=== PATIENT | male | born 1965 | race Caucasian/White ===

== ENCOUNTER → 2017-05-23 16:41 | Outpatient (CLI) | payer BC, SELFPAY ==
[2017-05-23 17:48] LABS: Hemoglobin A1C 6.3 % (0.0-7.0)
[2017-05-23 19:46] LABS: Alanine Aminotransferase 32 U/L (12-78); Albumin Level 4.2 gm/dL (3.4-5.0); Albumin/Globulin Ratio 1.4 (1.1-1.8); Alkaline Phosphatase 104 U/L (46-116); Anion Gap 11.3 mEq/L (5-15); Aspartate Amino Transferase 17 U/L (15-37); Bilirubin,Total 0.4 mg/dL (0.2-1.0); Blood Urea Nitrogen 11 mg/dL (7-18); Calcium 9.3 mg/dL (8.5-10.1); Carbon Dioxide 32 mmol/L (21.0-32.0); Chloride 102 mmol/L (98-107); Chol/HDL Ratio 5.9 (1-3.5); Cholesterol 164 mg/dL (140-200); Creatinine,Serum 1.42 mg/dL (0.70-1.30); Estimated Glomerular Filt Rate 53 ml/min (>60); GFR (African American) 64 ML/MIN (>60); Globulin 2.9 gm/dl (1.3-3.2); Glucose 92 mg/dL (74-106); HDL Cholesterol 28 mg/dL (27-67); LDL Cholesterol 103 mg/dL (0-130); Potassium 5.3 mmoL/L (3.5-5.1); Sodium 140 mmol/L (136-145); Total Protein,Serum 7.1 gm/dL (6.4-8.2); Triglycerides 163 mg/dL (30-200); VLDL Cholesterol 33 mg/dL (0-40)
== END ==
PROVIDERS: PCP Internal Medicine Adolescent Medicine; Visit Provider Internal Medicine Adolescent Medicine
DX: E11.69 Type 2 diabetes mellitus with other specified complication (principal)
CPT/HCPCS: 36415; 80053; 80061; 83036

== ENCOUNTER → 2017-06-23 10:49 | Outpatient (CLI) | payer BC, SELFPAY ==
--- NOTE | 2017-06-23 10:56 | XR_ITS ---
XR chest 2V HISTORY: ITS.REASON: COUGH,CHEST WALL PAIN ORDERING PHYSICIAN: Yadira Umaña PATIENT AGE: 51 years COMPARISON: 01/24/2017 FINDINGS: The cardiomediastinal silhouette and pulmonary vascularity are within normal limits. No lobar consolidation or collapse. A triangle shape opacity is once again noted in the right upper lobe overlying the 43 of anteriorly. This is similar when compared to 06/11/2016 and may represent a chronic pleural or parenchymal opacity. There is blunting of the right CP angle which is chronic. No acute bony abnormalities. IMPRESSION: No change with no acute finding Chronic blunting of the right CP angle with chronic opacity in the right upper lobe
== END ==
PROVIDERS: PCP Internal Medicine Adolescent Medicine; Visit Provider Nurse Practitioner Family
DX: R05 Cough (principal); R07.89 Other chest pain
CPT/HCPCS: 71046

== ENCOUNTER → 2017-10-01 11:29 | Outpatient (CLI) | payer BC, SELFPAY ==
--- NOTE | 2017-10-01 11:38 | XR_ITS ---
XR chest 2V Ordering Physician: Avni Yarbrough MD Patient Age: 52 years: Male HISTORY: ITS.REASON: ACUTE BRONCHOPNEUMONIA cough Surgery 4 years ago on lungs. Smoker. TECHNIQUE: PA and lateral chest. Cough. COMPARISON : June 2017: January 2017 FINDINGS There is been no significant new findings. Blunting at the right CP angle reflecting chronic pleural changes here again noted similar to February exam. The lungs appear well expanded and unchanged there is some minimal density again seen at the right midlung on, with the small faint area of density projected over the anterior right fourth rib. Possible nodular density here dates back to January 2017 CXR with no discrete change . Mild exaggeration markings right suprahilar region seen similar to previous studies.. I would also note Note history of surgery at the right chest.. Low threshold for follow-up CT would be encouraged particularly if positive findings from previous chest surgery. . IMPRESSION: Stable chest with nothing definitely acute. No acute pneumonia evident radiographically . Stable minimal nodularity right midlung. This and the mild prominence of markings right suprahilar region with no discrete change since June 2017 nor January 2017 study.. Stable blunting right CP angle again observed.
[2017-10-01 11:52] LABS: Basophils # 0.1 K/mm3 (0-0.2); Basophils % 1.6 % (0.1-2.0); Eosinophils # 0.2 K/mm3 (0.0-0.4); Hematocrit 41.9 % (42.0-52.0); Hemoglobin 14.2 g/dL (14.1-18.0); Lymphocytes # 2.1 K/mm3 (0.7-4.5); Lymphocytes % 35.9 K/mm3 (10-50); Mean Corpuscular HGB Conc 33.9 g/dL (31.8-35.4); Mean Corpuscular Hemoglobin 28.3 pg (27.0-31.2); Mean Corpuscular Volume 83.7 fl (80-94); Mean Platelet Volume 9.5 fl (7.4-10.4); Monocytes # 0.4 K/mm3 (0.1-1.0); Monocytes % 6.3 % (1.7-9.3); Neutrophils # 3.2 K/mm3 (1.8-7.8); Neutrophils % 53.2 % (37.0-80.0); Platelet Count 181 K/mm3 (142-424); Red Cell Distribution Width 13.2 % (11.5-17.5); White Blood Count 5.9 K/mm3 (4.8-10.8)
[2017-10-01 15:14] LABS: Alanine Aminotransferase 37 U/L (12-78); Albumin Level 3.7 gm/dL (3.4-5.0); Albumin/Globulin Ratio 1.3 (1.1-1.8); Alkaline Phosphatase 80 U/L (46-116); Anion Gap 10.5 mEq/L (5-15); Aspartate Amino Transferase 16 U/L (15-37); Bilirubin,Total 0.5 mg/dL (0.2-1.0); Blood Urea Nitrogen 14 mg/dL (7-18); Calcium 9.1 mg/dL (8.5-10.1); Carbon Dioxide 29 mmol/L (21.0-32.0); Chloride 104 mmol/L (98-107); Creatinine,Serum 1.03 mg/dL (0.70-1.30); Estimated Glomerular Filt Rate 76 ml/min (>60); GFR (African American) 92 ML/MIN (>60); Globulin 2.9 gm/dl (1.3-3.2); Glucose 124 mg/dL (74-106); Potassium 4.5 mmoL/L (3.5-5.1); Sodium 139 mmol/L (136-145); Total Protein,Serum 6.6 gm/dL (6.4-8.2)
[2017-10-01 15:40] LABS: Hemoglobin A1C 7.2 % (0.0-7.0)
== END ==
PROVIDERS: PCP Internal Medicine Adolescent Medicine; Visit Provider Internal Medicine Adolescent Medicine
DX: J18.0 Bronchopneumonia, unspecified organism (principal); E11.69 Type 2 diabetes mellitus with other specified complication; Z87.09 Personal history of other diseases of the respiratory system
CPT/HCPCS: 36415; 71046; 80053; 83036; 85025

== ENCOUNTER 2018-05-17 14:24 | Inpatient (IN) ==
--- NOTE | 2018-05-17 15:10 | Pharmacy Consult Notes ---
[facility] Pharmacy VTE Monitoring - Patient Demographics Admission date: 05/17/18 Report Date: 05/17/18 Time: 15:10 Allergies/Adverse Reactions: Patient Allergies No Known Allergies Allergy (Unverified 05/15/18 12:59) Height: 1.75 m Weight: 120.259 kg - VTE Risk Clinical Trial Participant: No - Prophylaxis VTE Prophylaxis Ordered?: Yes Types of VTE Prophylaxis: TEDS Knee High
[2018-05-17 16:09] LABS: Basophils # 0.1 K/mm3 (0-0.2); Basophils % 0.7 % (0.1-2.0); Eosinophils # 0.2 K/mm3 (0.0-0.4); Eosinophils % 1.6 % (0.1-12.0); Hematocrit 41.8 % (42.0-52.0); Hemoglobin 13.9 g/dL (14.1-18.0); Lymphocytes # 1.9 K/mm3 (0.7-4.5); Lymphocytes % 14.2 % (10-50); Mean Corpuscular HGB Conc 33.2 g/dL (31.8-35.4); Mean Corpuscular Hemoglobin 28.7 pg (27.0-31.2); Mean Corpuscular Volume 86.4 fl (80-94); Mean Platelet Volume 9.3 fl (7.4-10.4); Monocytes # 0.7 K/mm3 (0.1-1.0); Monocytes % 5.3 % (1.7-9.3); Neutrophils # 10.4 K/mm3 (1.8-7.8); Neutrophils % 78.1 % (37.0-80.0); Platelet Count 224 K/mm3 (142-424); Red Blood Count 4.84 M/mm3 (4.60-6.20); Red Cell Distribution Width 13.2 % (11.5-17.5); White Blood Count 13.4 K/mm3 (4.8-10.8)
--- NOTE | 2018-05-17 16:22 | Consult Report ---
*Admission Date: 05/17/18 *Chief complaint: Abscess *History of present illness: This is a 52-year-old gentleman seen in consultation from Dr. Yarbrough for evaluation regarding a posterior neck abscess. He developed what he describes as "pimple" a "week or so ago". As the area of swelling increased he tried to express fluid and created increased irritation. He developed increased erythema and pain/swelling and presented for evaluation earlier today. After evaluation by Dr. Yarbrough the decision was made to admit for IV antibiotics and surgical consultation. Review of Systems - Constitutional Denies chills - Eyes Denies change in vision - ENT Denies change in voice - *Cardiovascular Denies chest pain - *Respiratory Denies cough - *Gastrointestinal Denies abdominal pain - *Musculoskeletal Denies abnormal walking - Psychiatric Denies anxiety - Endocrine Denies cold intolerance - Hematologic/Lymphatic Denies easy bleeding - Allergic/Immunologic Denies GI upset with certain foods [facility] History Medical History: Reports:: Depression, Diabetes Mellitus Type 2, Gastroesophageal Reflux Disease(GERD), Hyperlipidemia, Hypertension - *Social History Smoking Status: Never smoker Alcohol Intake: never - Psychiatric History Pschychiatric History:: Reports:: Depression Meds Home Medications Medication Instructions Recorded Confirmed Type escitalopram 20 mg tablet 40 mg PO DAILY 05/15/18 05/17/18 History Albuterol Sulfate [Albuterol HFA 2 puffs IH Q4HP PRN 05/17/18 05/17/18 History Inhaler] Atorvastatin Calcium [Atorvastatin 20 mg PO DAILY 05/17/18 05/17/18 History 20mg Tab] Budesonide/Formoterol Fumarate 2 puffs IH BIDP PRN 05/17/18 05/17/18 History [Symbicort 160-4.5 Mcg Inhaler] Lansoprazole 30 mg PO DAILY 05/17/18 05/17/18 History Sitagliptin Phos/Metformin HCl 1 each PO HS 05/17/18 05/17/18 History [Janumet Xr 100-1,000 mg Tablet] Venlafaxine HCl [Venlafaxine HCl 37.5 mg PO DAILY 05/17/18 05/17/18 History ER] cephALEXin [Keflex 500mg Cap] 500 mg PO BID 05/17/18 05/17/18 History Allergies Allergy/AdvReac Type Severity Reaction Status Date / Time No Known Allergies Allergy Unverified 05/15/18 12:59 Exam Vital signs and Labs for Last 24 Hours: Temp Pulse Resp BP Pulse Ox 98.6 F 86 18 139/65 96 05/17/18 15:04 05/17/18 15:04 05/17/18 15:04 05/17/18 15:04 05/17/18 15:04 Laboratory Results - last 24 hr 05/17/18 15:50: WBC 13.4 H, RBC 4.84, Hgb 13.9 L, Hct 41.8 L, MCV 86.4, MCH 28.7, MCHC 33.2, RDW 13.2, Plt Count 224, MPV 9.3, Neut % (Auto) 78.1, Lymph % (Auto) 14.2, [place] % (Auto) 5.3, Eos % (Auto) 1.6, Baso % (Auto) 0.7, Neut # (Auto) 10.4 H, Lymph # (Auto) 1.9, [place] # (Auto) 0.7, Eos # (Auto) 0.2, Baso # (Auto) 0.1 I & O for Last 24 hours: Intake & Output 05/15/18 05/16/18 05/17/18 05/18/18 11:59 11:59 11:59 11:59 Weight 265 lb 2 oz - Constitutional no acute distress - *Routine Neck Exam Comments: left posterior abscess with induration and erythema - *Routine Respiratory Exam Absent: respiratory distress - *Routine Cardiovascular Exam Present: RRR Results - Labs 05/17/18 15:50 Laboratory Results - last 24 hr 05/17/18 15:50: WBC 13.4 H, RBC 4.84, Hgb 13.9 L, Hct 41.8 L, MCV 86.4, MCH 28.7, MCHC 33.2, RDW 13.2, Plt Count 224, MPV 9.3, Neut % (Auto) 78.1, Lymph % (Auto) 14.2, [place] % (Auto) 5.3, Eos % (Auto) 1.6, Baso % (Auto) 0.7, Neut # (Auto) 10.4 H, Lymph # (Auto) 1.9, [place] # (Auto) 0.7, Eos # (Auto) 0.2, Baso # (Auto) 0.1 Assessment and Plan (1) Abscess of neck Current visit: Yes Status: Acute Category: Medical Code(s): L02.11 - Cutaneous abscess of neck IV antibiotics Pain management NPO after midnight The patient is being scheduled for incision and drainage (to be performed tomorrow). I have discussed the risks and benefits including, but not limited to: Bleeding Infection Damage to surrounding tissue Inherent risks of sedation The patient agrees to proceed.
[2018-05-17 16:23] LABS: Albumin Level 3.5 gm/dL (3.4-5.0); Albumin/Globulin Ratio 0.9 (1.1-1.8); Anion Gap 13.1 mEq/L (5-15); Bilirubin,Total 0.6 mg/dL (0.2-1.0); Calcium 8.9 mg/dL (8.5-10.1); Globulin 3.8 gm/dl (1.3-3.2); Potassium 4.1 mmoL/L (3.5-5.1); Total Protein,Serum 7.3 gm/dL (6.4-8.2)
--- NOTE | 2018-05-17 17:23 | History & Physical Report ---
*Admission Date: 05/17/18 *Chief complaint: Neck abscess *History of present illness: 52-year-old white male with no prior history of skin abscess who reported to the office today with a chief complaint of painful swelling in the left neck with some purulent drainage. He had been seen at the urgent treatment center over the holidays and placed on Keflex, and although he had been compliant with his medication it had not improved his situation with neck pain, swelling and purulent drainage and he came to my office. In the office he was found to have a very large, 10 cm indurated, tender area covered with a macerated area that appeared to be impetigo along with a couple of other new spots in the neck and he was admitted to hospital for IV antibiotics and surgical consultation. [facility] History I have reviewed the patient's past medical history: Yes Medical History: Reports:: Depression, Diabetes Mellitus Type 2, Gastroesophageal Reflux Disease(GERD), Hyperlipidemia, Hypertension Denies:: Cancer, Diabetes Mellitus Type 1, MRSA Other Surgeries: Yes: Other (Pleurodesis secondary to recurrent pleural effusions) Amputation: No Fractures: No - *Social History Educational Level: Completed High School Smoking Status: Current every day smoker Tobacco Type: cigarettes Alcohol Intake: never Occupational Status: employed Housing: house Household Members: spouse - Psychiatric History Expresses thoughts of harming self/others: None Suicide Plan Description: No Plan Pschychiatric History:: Reports:: Depression *Family Hx:: No significant family history, Non-contributory Review of Systems - Review of Systems Review of systems:: pertinent systems reviewed and negative unless documented below - Constitutional Reports body ache(s), Reports chills, Reports fever(s), Reports headache(s), Denies anorexia - Eyes Denies blind spots, Denies blurry vision, Denies change in vision - ENT Denies abnormal hearing, Denies bleeding gums, Denies change in voice - *Cardiovascular Denies chest pain, Denies chest pain at rest, Denies excessive sweating, Denies shortness of breath with activity, Denies generalized swelling, Denies irregular heart rhythm - *Respiratory Denies change in phlegm color, Denies chest congestion, Denies cough, Denies shortness of breath - *Gastrointestinal Denies abdominal pain, Denies belching, Denies bloating, Denies coffee ground vomit, Denies constipation, Denies cramping - *Genitourinary Denies difficulty urinating - *Musculoskeletal Reports neck pain, Denies abnormal walking, Denies joint pain, Denies decreased muscle mass, Denies stiffness, Denies tingling - *Neurologic Denies abnormal walking, Denies abnormal hearing Meds Home Medications Medication Instructions Recorded Confirmed Type escitalopram 20 mg tablet 40 mg PO DAILY 05/15/18 05/17/18 History Albuterol Sulfate [Albuterol HFA 2 puffs IH Q4HP PRN 05/17/18 05/17/18 History Inhaler] Atorvastatin Calcium [Atorvastatin 20 mg PO DAILY 05/17/18 05/17/18 History 20mg Tab] Budesonide/Formoterol Fumarate 2 puffs IH BIDP PRN 05/17/18 05/17/18 History [Symbicort 160-4.5 Mcg Inhaler] Lansoprazole 30 mg PO DAILY 05/17/18 05/17/18 History Sitagliptin Phos/Metformin HCl 1 each PO HS 05/17/18 05/17/18 History [Janumet Xr 100-1,000 mg Tablet] Venlafaxine HCl [Venlafaxine HCl 37.5 mg PO DAILY 05/17/18 05/17/18 History ER] cephALEXin [Keflex 500mg Cap] 500 mg PO BID 05/17/18 05/17/18 History Allergies Allergy/AdvReac Type Severity Reaction Status Date / Time No Known Allergies Allergy Unverified 05/15/18 12:59 Exam Vital signs and Labs for Last 24 Hours: Temp Pulse Resp BP Pulse Ox 98.6 F 86 18 139/65 96 05/17/18 15:04 05/17/18 15:04 05/17/18 15:04 05/17/18 15:04 05/17/18 15:04 Laboratory Results - last 24 hr 05/17/18 15:50: WBC 13.4 H, RBC 4.84, Hgb 13.9 L, Hct 41.8 L, MCV 86.4, MCH 28.7, MCHC 33.2, RDW 13.2, Plt Count 224, MPV 9.3, Neut % (Auto) 78.1, Lymph % (Auto) 14.2, [place] % (Auto) 5.3, Eos % (Auto) 1.6, Baso % (Auto) 0.7, Neut # (Auto) 10.4 H, Lymph # (Auto) 1.9, [place] # (Auto) 0.7, Eos # (Auto) 0.2, Baso # (Auto) 0.1 05/17/18 15:50: Sodium 138, Potassium 4.1, Chloride 101, Carbon Dioxide 28, Anion Gap 13.1, BUN 12, Creatinine 1.08, Estimated Creat Clear 138, Estimated GFR 72, Est GFR ( Amer) 87, Glucose 198 H, Calcium 8.9, Total Bilirubin 0.6, AST 20, ALT 59, Alkaline Phosphatase 104, Total Protein 7.3, Albumin 3.5, Globulin 3.8 H, Albumin/Globulin Ratio 0.9 L I & O for Last 24 hours: Intake & Output 05/15/18 05/16/18 05/17/18 05/18/18 11:59 11:59 11:59 11:59 Weight 265 lb 2 oz Narrative: Patient is awake. Alert. Cranial nerves are intact and symmetric. Patient has an obvious, large, indurated area of abscess on the left neck at the base of the neck just above the trapezius area with a central head of minimal purulent drainage. There is a smaller area of abscess on the anterior left neck. There is shotty lymphadenitis on the left side of the Lungs have some rhonchi scattered throughout. No crackles. No areas of poor air movement. Heart rate regular without murmurs. Abdomen soft and nontender. No clubbing, no cyanosis. No edema. Assessment and Plan (1) Abscess of neck Current visit: Yes Status: Acute Category: Medical Code(s): L02.11 - Cutaneous abscess of neck Given failed outpatient therapy admit to hospital. Intravenous Unasyn and vancomycin for gram-negative/positive coverage. Surgical consultation. (2) Diabetes type 2, controlled Current visit: Yes Status: Acute Category: Medical Code(s): E11.9 - Type 2 diabetes mellitus without complications Hold p.o. medications. Sliding scale insulin (3) Personal history of nicotine dependence Current visit: Yes Status: Acute Category: Medical Code(s): Z87.891 - Personal history of nicotine dependence Nicotine patch. (4) Obesity (BMI 30-39.9) Current visit: Yes Status: Acute Category: Medical Code(s): E66.9 - Obesity, unspecified Complicates all aspects of his care. (5) Hypertension, essential Current visit: Yes Status: Acute Category: Medical Code(s): I10 - Essential (primary) hypertension Hold p.o. medications. Watch carefully. (6) Panlobular emphysema Current visit: Yes Status: Acute Category: Medical Code(s): J43.1 - Pa nlobular emphysema Begin nebulizer treatments for perioperative
--- NOTE | 2018-05-18 07:35 | Progress Note ---
Subjective Patient reports: other (getting ready for shower) Exam Vital signs and Labs for Last 24 Hours: Temp Pulse Resp BP Pulse Ox 98.1 F 75 18 132/70 88 L 05/18/18 05:45 05/18/18 06:30 05/18/18 05:45 05/18/18 05:45 05/18/18 06:30 Laboratory Results - last 24 hr 05/17/18 15:50: WBC 13.4 H, RBC 4.84, Hgb 13.9 L, Hct 41.8 L, MCV 86.4, MCH 28.7, MCHC 33.2, RDW 13.2, Plt Count 224, MPV 9.3, Neut % (Auto) 78.1, Lymph % (Auto) 14.2, [place] % (Auto) 5.3, Eos % (Auto) 1.6, Baso % (Auto) 0.7, Neut # (Auto) 10.4 H, Lymph # (Auto) 1.9, [place] # (Auto) 0.7, Eos # (Auto) 0.2, Baso # (Auto) 0.1 05/17/18 15:50: Sodium 138, Potassium 4.1, Chloride 101, Carbon Dioxide 28, Anion Gap 13.1, BUN 12, Creatinine 1.08, Estimated Creat Clear 138, Estimated GFR 72, Est GFR ( Amer) 87, Glucose 198 H, Calcium 8.9, Total Bilirubin 0.6, AST 20, ALT 59, Alkaline Phosphatase 104, Total Protein 7.3, Albumin 3.5, Globulin 3.8 H, Albumin/Globulin Ratio 0.9 L 05/17/18 17:30: POC Glucose 148 H 05/18/18 06:01: POC Glucose 145 H I & O for Last 24 hours: Intake & Output 05/15/18 05/16/18 05/17/18 05/18/18 11:59 11:59 11:59 11:59 Output Total 1000 / 1000 Balance -1000 / -1000 Weight 586 lb 6.873 oz - Constitutional no acute distress - *Routine Neck Exam Comments: stable - *Routine Respiratory Exam Absent: respiratory distress Progress Note: A&P (1) Abscess of neck Status: Acute Assessment and plan: continue abx I&D today Current Visit: Yes (2) Diabetes type 2, controlled Status: Acute Current Visit: Yes (3) Personal history of nicotine dependence Status: Acute Current Visit: Yes (4) Obesity (BMI 30-39.9) Status: Acute Current Visit: Yes (5) Hypertension, essential Status: Acute Current Visit: Yes (6) Panlobular emphysema Status: Acute Current Visit: Yes
--- NOTE | 2018-05-18 08:29 | Progress Note ---
Internal Medicine - PN: Subj *Date: 05/18/18 *Time: 07:15 Interval history: Patient reports neck pain and swelling has significantly improved. He is NPO for I & D later today. Alert and oriented x3. Rate and rhythm regular. No LE edema. Lung sounds clear and equal. Left posterior neck with approx 6 cm raised erythematous area, + purulent drainage, small approx 1 cm lesion c/w impetigo left cheek, anterior LAD improved. Abdomen soft and nontender Exam Vital signs and Labs for Last 24 Hours: Temp Pulse Resp BP Pulse Ox 98.1 F 84 16 137/77 95 05/18/18 08:00 05/18/18 08:00 05/18/18 08:00 05/18/18 08:00 05/18/18 08:00 Laboratory Results - last 24 hr 05/17/18 15:50: WBC 13.4 H, RBC 4.84, Hgb 13.9 L, Hct 41.8 L, MCV 86.4, MCH 28.7, MCHC 33.2, RDW 13.2, Plt Count 224, MPV 9.3, Neut % (Auto) 78.1, Lymph % (Auto) 14.2, [place] % (Auto) 5.3, Eos % (Auto) 1.6, Baso % (Auto) 0.7, Neut # (Auto) 10.4 H, Lymph # (Auto) 1.9, [place] # (Auto) 0.7, Eos # (Auto) 0.2, Baso # (Auto) 0.1 05/17/18 15:50: Sodium 138, Potassium 4.1, Chloride 101, Carbon Dioxide 28, Anion Gap 13.1, BUN 12, Creatinine 1.08, Estimated Creat Clear 138, Estimated GFR 72, Est GFR ( Amer) 87, Glucose 198 H, Calcium 8.9, Total Bilirubin 0.6, AST 20, ALT 59, Alkaline Phosphatase 104, Total Protein 7.3, Albumin 3.5, Globulin 3.8 H, Albumin/Globulin Ratio 0.9 L 05/17/18 17:30: POC Glucose 148 H 05/18/18 06:01: POC Glucose 145 H I & O for Last 24 hours: Intake & Output 05/15/18 05/16/18 05/17/18 05/18/18 11:59 11:59 11:59 11:59 Output Total 1000 / 1000 Balance -1000 / -1000 Weight 264 lb 5 oz Assessment and Plan (1) Abscess of neck Current visit: Yes Status: Acute Category: Medical Code(s): L02.11 - Cutaneous abscess of neck (2) Diabetes type 2, controlled Current visit: Yes Status: Acute Category: Medical Code(s): E11.9 - Type 2 diabetes mellitus without complications (3) Personal history of nicotine dependence Current visit: Yes Status: Acute Category: Medical Code(s): Z87.891 - Personal history of nicotine dependence (4) Obesity (BMI 30-39.9) Current visit: Yes Status: Acute Category: Medical Code(s): E66.9 - Obesity, unspecified (5) Hypertension, essential Current visit: Yes Status: Acute Category: Medical Code(s): I10 - Essential (primary) hypertension (6) Panlobular emphysema Current visit: Yes Status: Acute Category: Medical Code(s): J43.1 - Panlobular emphysema - Assessment and plan all Dx Assessment and Plan for all problems:: Abscess has improved significantly overnight with IV antibiotics. Wound culture pending. NPO for I & D with Dr. Madera later today.
--- NOTE | 2018-05-18 09:18 | Progress Note ---
[facility] Anesthesia Checklist - Patient Identification Patient Identification: Arm Band, Verbal (Name & ) - Structural Data Admitted From: Inpatient Planned Operative Procedure/s: ex neck abcess Consent for Planned Operative Procedure(s) Verified: Yes Verified Documents: History and Physical - NPO Status Verified Time NPO: 00:00 - Additional verifications Patient : No Anesthesia Reactions: No Hx Blood Transfusions: No Blood Transfusion Reaction: No Cephalosporin Allergy: No Previous Colonoscopy: No - Cardiovascular Assessment Heart Sounds: S1 & S2 Pulse Strength: Baseline Pulse Rhythm: Regular Peripheral Edema: No - Airway Assessment C-Spine Mobility Assessed: Yes TMJ Mobility Assessed: Yes Dentition: Good Dentition - Neurological Assessment Level of Consciousness: Awake, Alert, Appropriate Hx Seizures: No Numbness or tingling in extremities: No - Anesthesia Plan Anesthesia Risk discussed: Yes Anesthesia Plan: Verified ASA Class: III Anesthesia Type: General [facility] History I have reviewed the patient's past medical history: Yes Medical History: Reports:: Depression, Diabetes Mellitus Type 2, Gastroesophageal Reflux Disease(GERD), Hyperlipidemia, Hypertension Denies:: Cancer, Diabetes Mellitus Type 1, MRSA Other Surgeries: Yes: Other (Pleurodesis secondary to recurrent pleural effusio ns) Amputation: No Fractures: No - *Social History Educational Level: Completed High School Smoking Status: Current every day smoker Tobacco Type: cigarettes Alcohol Intake: never Occupational Status: employed Housing: house Household Members: spouse - Psychiatric History Expresses thoughts of harming self/others: None Suicide Plan Description: No Plan Pschychiatric History:: Reports:: Depression *Family Hx:: No significant family history, Non-contributory
--- NOTE | 2018-05-18 10:45 | Operative Note ---
Date of procedure: 05/18/18 Pre-op Diagnosis:: Left posterior neck abscess Post-op Diagnosis:: Same Procedure performed:: Incision and drainage of left posterior neck abscess Surgeon:: Octavio Madera MD Anesthesia: LMA Estimated blood loss (mL): 10 Operative findings:: Multiple "microabscesses" throughout area of induration Operative note:: After informed consent was obtained the patient was taken to the operating room and placed in the supine position. He was transferred to a right lateral decubitus position and laryngeal mask airway anesthesia achieved. The neck was prepped and draped in a sterile fashion. After infiltration of local anesthetic an elliptical incision was made with cautery along the central portion of the abscess. A small portion of necrotic skin and underlying tissue was excised. Fluid was obtained for Gram stain/culture. A few small pockets of purulence were evacuated. Manual compression revealed "microabscesses" throughout the area of induration. These were cleared as much as possible and the wound was packed open with moistened Kerlix. The entire area was infiltrated with 1% lidocaine and dressings were applied. The patient was transferred to recovery after removal of his laryngeal mask airway. Condition: stable Disposition: PACU Specimens:: Fluid for Gram stain/culture Complications:: No immediate
--- NOTE | 2018-05-18 10:53 | Progress Note ---
[facility] Anesthesia Record Part I Intake, IV Amount: 500 Estimated blood loss (mL): 15 Urine output (mL): 0 Blood Products used (#): none Blood Pressure: 186/95 SaO2: 91 Pulse Rate: 90 Respiratory Rate: 18 Temperature: 97.6 F Patient is:: Drowsy, Nasal O2, Stable Stable to PACU at:: 10:50
--- NOTE | 2018-05-18 10:53 | Progress Note ---
[facility] Anesthesia Record Part II Discharge Time: 11:20 Destination: Surgical Day Care (OP Surgery) PACU nurse assessment reviewed?: Yes Patient Condition:: Good Anesthesia Complications:: None
--- NOTE | 2018-05-18 11:35 | Pharmacy Consult Notes ---
- Pharmacy Consult Date: 05/18/18 Time: 11:34 Referring provider: DR. LEROY Reason for Consult:: VANCOMYCIN DOSING Allergies and ADEs:: Allergies Allergy/AdvReac Type Severity Reaction Status Date / Time No Known Allergies Allergy Unverified 05/15/18 12:59 Home Medications:: Home Medications Medication Instructions Recorded Confirmed Type escitalopram 20 mg tablet 40 mg PO DAILY 05/15/18 05/17/18 History Albuterol Sulfate [Albuterol HFA 2 puffs IH Q4HP PRN 05/17/18 05/17/18 History Inhaler] Atorvastatin Calcium [Atorvastatin 20 mg PO DAILY 05/17/18 05/17/18 History 20mg Tab] Budesonide/Formoterol Fumarate 2 puffs IH BID 05/17/18 05/18/18 History [Symbicort 160-4.5 Mcg Inhaler] Lansoprazole 30 mg PO DAILY 05/17/18 05/17/18 History Sitagliptin Phos/Metformin HCl 1 each PO HS 05/17/18 05/17/18 History [Janumet Xr 100-1,000 mg Tablet] Venlafaxine HCl [Venlafaxine HCl 37.5 mg PO DAILY 05/17/18 05/17/18 History ER] cephALEXin [Keflex 500mg Cap] 500 mg PO BID 05/17/18 05/17/18 History Height: 1.75 m Weight: 119.89 kg Laboratory Results:: Laboratory Results - last 24 hr 05/17/18 15:50: WBC 13.4 H, RBC 4.84, Hgb 13.9 L, Hct 41.8 L, MCV 86.4, MCH 28.7, MCHC 33.2, RDW 13.2, Plt Count 224, MPV 9.3, Neut % (Auto) 78.1, Lymph % (Auto) 14.2, [place] % (Auto) 5.3, Eos % (Auto) 1.6, Baso % (Auto) 0.7, Neut # (Auto) 10.4 H, Lymph # (Auto) 1.9, [place] # (Auto) 0.7, Eos # (Auto) 0.2, Baso # (Auto) 0.1 05/17/18 15:50: Sodium 138, Potassium 4.1, Chloride 101, Carbon Dioxide 28, Anion Gap 13.1, BUN 12, Creatinine 1.08, Estimated Creat Clear 138, Estimated GFR 72, Est GFR ( Amer) 87, Glucose 198 H, Calcium 8.9, Total Bilirubin 0.6, AST 20, ALT 59, Alkaline Phosphatase 104, Total Protein 7.3, Albumin 3.5, Globulin 3.8 H, Albumin/Globulin Ratio 0.9 L 05/17/18 17:30: POC Glucose 148 H 05/18/18 06:01: POC Glucose 145 H 05/18/18 10:56: POC Glucose 178 H Medical History: Reports:: Depression, Diabetes Mellitus Type 2, Gastroesophageal Reflux Disease(GERD), Hyperlipidemia, Hypertension Denies:: Cancer, Diabetes Mellitus Type 1, MRSA, Seizures Assessment and Plan (1) Abscess of neck Current visit: Yes Status: Acute Category: Medical Code(s): L02.11 - Cutaneous abscess of neck (2) Diabetes type 2, controlled Current visit: Yes Status: Acute Category: Medical Code(s): E11.9 - Type 2 diabetes mellitus without complications (3) Personal history of nicotine dependence Current visit: Yes Status: Acute Category: Medical Code(s): Z87.891 - Personal history of nicotine dependence (4) Obesity (BMI 30-39.9) Current visit: Yes Status: Acute Category: Medical Code(s): E66.9 - Obesity, unspecified (5) Hypertension, essential Current visit: Yes Status: Acute Category: Medical Code(s): I10 - Essential (primary) hypertension (6) Panlobular emphysema Current visit: Yes Status: Acute Category: Medical Code(s): J43.1 - Panlobular emphysema - Assessment and plan all Dx Assessment and Plan for all problems:: BASED ON PATIENT'S FACTORS, RECOMMEND STARTING WITH VANCOMYCIN 2000 MG Q12H AT THIS TIME. WILL OBTAIN TROUGH LEVEL PRIOR TO DOSE TOMORROW NIGHT. PHARMACY WILL FOLLOW DAILY AND ADJUST APPROPRIATE. FREDY SINGH, HEYDID
--- NOTE | 2018-05-19 06:53 | Progress Note ---
Subjective Patient reports: feels better Exam Vital signs and Labs for Last 24 Hours: Temp Pulse Resp BP Pulse Ox 97.2 F L 65 16 138/77 96 05/19/18 03:56 05/19/18 06:00 05/19/18 03:56 05/19/18 03:56 05/19/18 06:00 Laboratory Results - last 24 hr 05/18/18 10:56: POC Glucose 178 H 05/18/18 11:47: POC Glucose 180 H 05/18/18 14:41: POC Glucose 243 H 05/18/18 16:28: POC Glucose 361 H* 05/18/18 20:48: POC Glucose 469 H* 05/19/18 05:55: POC Glucose 186 H I & O for Last 24 hours: Intake & Output 05/16/18 05/17/18 05/18/18 05/19/18 11:59 11:59 11:59 11:59 Intake Total 650 / 650 1465 / 1465 Output Total 1000 / 1000 Balance -350 / -350 1465 / 1465 Weight 264 lb 5 oz Microbiology Reports for the Last 24 Hours: Microbiology 05/18/18 Unknown Neck - Abscess Gram Stain - Final - Constitutional no acute distress - *Routine Neck Exam Comments: wound margin clean. no spreading cellulitis. less induration. - *Routine Respiratory Exam Absent: respiratory distress Progress Note: A&P (1) Abscess of neck Status: Acute Assessment and plan: Overall, doing well status post incision and drainage of complex abscess (microabscesses). Continue antibiotics (likely conversion to PO antibiotics soon) Dressing changes Close outpatient follow-up Current Visit: Yes (2) Diabetes type 2, controlled Status: Acute Current Visit: Yes (3) Personal history of nicotine dependence Status: Acute Current Visit: Yes (4) Obesity (BMI 30-39.9) Status: Acute Current Visit: Yes (5) Hypertension, essential Status: Acute Current Visit: Yes (6) Panlobular emphysema Status: Acute Current Visit: Yes
--- NOTE | 2018-05-19 11:30 | Discharge Summary ---
General - General Admission date:: 05/17/18 Discharge date: 05/19/18 HPI HPI: 52-year-old white male with no prior history of skin abscess who reported to the office today with a chief complaint of painful swelling in the left neck with some purulent drainage. He had been seen at the urgent treatment center over the holidays and placed on Keflex, and although he had been compliant with his medication it had not improved his situation with neck pain, swelling and purulent drainage and he came to my office. In the office he was found to have a very large, 10 cm indurated, tender area covered with a macerated area that appeared to be impetigo along with a couple of other new spots in the neck and he was admitted to hospital for IV antibiotics and surgical consultation. Hospital Course Hospital Course: Patient was admitted for lesion on neck. Underwent surgical I&D with drainage of large quantity of purulent material out of initially treated with IV antibiotics with significant improvement. Wound care packed wound daily. Transition to oral antibiotics with plan to follow-up closely with surgery for reassessment. Plan for daily dressing changes and packing exchange. Rating oral medications, nutrition, and fluids. Hemodynamically stable and ready for discharge home Objective Vital signs: Temp Pulse Resp BP Pulse Ox 97.7 F 87 18 124/59 L 96 05/19/18 08:00 05/19/18 08:00 05/19/18 08:00 05/19/18 08:00 05/19/18 08:06 Results Labs on day of discharge: Labs from last 24 hours 05/19/18 05/18/18 05/18/18 05:55 20:48 16:28 POC Glucose 186 H 469 H* 361 H* 05/18/18 05/18/18 14:41 11:47 POC Glucose 243 H 180 H Preliminary micro results at discharge 05/18/18 Unknown Abscess Culture - Preliminary Neck - Abscess Gram Positive Cocci DS: Diagnosis - Discharge Diagnosis (1) Abscess of neck Status: Acute (2) Diabetes type 2, controlled Status: Acute (3) Personal history of nicotine dependence Status: Acute (4) Obesity (BMI 30-39.9) Status: Acute (5) Hypertension, essential Status: Acute (6) Panlobular emphysema Status: Acute Discharge Plan - Patient Discharge Instructions ACTIVITY: Continue current activity DIET: continue same diet Additional Instructions: change dressings BID if done at home or return to Hospital for daily dressing changes. Patient Instructions: DI for Skin Abscess - Follow up Plan Follow up with: Avni Yarbrough MD [Primary Care Provider] - 2 weeks Octavio Madera MD [Staff Physician] - 1 week Disposition: Home, Self-Long Term Medications: Home Medications Medication Instructions Recorded Confirmed Type escitalopram 20 mg tablet 40 mg PO DAILY 05/15/18 05/17/18 History RX: Albuterol Sulfate [Albuterol 2 puffs IH Q4HP PRN 05/17/18 05/17/18 History HFA Inhaler] RX: Atorvastatin Calcium 20 mg PO DAILY 05/17/18 05/17/18 History [Atorvastatin 20mg Tab] RX: Budesonide/Formoterol Fumarate 2 puffs IH BID 05/17/18 05/18/18 History [Symbicort 160-4.5 Mcg Inhaler] RX: Lansoprazole 30 mg PO DAILY 05/17/18 05/17/18 History RX: Sitagliptin Phos/Metformin HCl 1 each PO HS 05/17/18 05/17/18 History [Janumet Xr 100-1,000 mg Tablet] RX: Venlafaxine HCl [Venlafaxine 37.5 mg PO DAILY 05/17/18 05/17/18 History HCl ER] Amoxicillin/Potassium Clav 1 tab PO Q12H 12 Days #24 tab 05/19/18 Rx [Augmentin 875-125 Tablet] RX: Oxycodone HCl [OxyIR 5mg 5 mg PO Q8HP PRN 5 Days #15 tab 05/19/18 Rx tablet] Sulfamethoxazole/Trimethoprim 1 each PO BID 12 Days #24 tab 05/19/18 Rx [Bactrim DS tablet] Prescriptions/Medication Reconciliation: New Amoxicillin/Potassium Clav [Augmentin 875-125 Tablet] 1 tab PO Q12H 12 Days #24 tab Sulfamethoxazole/Trimethoprim [Bactrim DS tablet] 1 each PO BID 12 Days #24 tab RX: Oxycodone HCl [OxyIR 5mg tablet] 5 mg PO Q8HP PRN 5 Days #15 tab PRN Reason: Severe Pain Continue escitalopram 20 mg tablet 40 mg PO DAILY RX: Sitagliptin Phos/Metformin HCl [Janumet Xr 100-1,000 mg Tablet] 1 each PO HS RX: Venlafaxine HCl [Venlafaxine HCl ER] 37.5 mg PO DAILY RX: Atorvastatin Calcium [Atorvastatin 20mg Tab] 20 mg PO DAILY RX: Lansoprazole 30 mg PO DAILY RX: Budesonide/Formoterol Fumarate [Symbicort 160-4.5 Mcg Inhaler] 2 puffs IH BID RX: Albuterol Sulfate [Albuterol HFA Inhaler] 2 puffs IH Q4HP PRN PRN Reason: Shortness Of Breath Or Wheezing Discontinued RX: cephALEXin [Keflex 500mg Cap] 500 mg PO BID
== END 2018-05-19 13:22 | disposition home or self-care (01) | DRG 603 ==
LOC: 2ND 14:50
PROVIDERS: ADMIT Internal Medicine Adolescent Medicine; ATTEND Internal Medicine Adolescent Medicine
CPT/HCPCS: 71020; 71046; 80053; 82962; 85025; 87040; 87070; 87075; 87077; 87186; 87205; 93005; 94640; 94761; J2405; J3370

== ENCOUNTER → 2018-09-13 13:02 | Outpatient (CLI) | payer SELFPAY ==
[2018-09-13 14:11] LABS: Basophils # 0.1 K/mm3 (0-0.2); Basophils % 1.7 % (0.1-2.0); Eosinophils # 0.2 K/mm3 (0.0-0.4); Eosinophils % 3.4 % (0.1-12.0); Hematocrit 42.3 % (42.0-52.0); Hemoglobin 14.1 g/dL (14.1-18.0); Lymphocytes # 2.2 K/mm3 (0.7-4.5); Lymphocytes % 34.6 % (10-50); Mean Corpuscular HGB Conc 33.4 g/dL (31.8-35.4); Mean Corpuscular Hemoglobin 27.9 pg (27.0-31.2); Mean Corpuscular Volume 83.6 fl (80-94); Mean Platelet Volume 9.3 fl (7.4-10.4); Monocytes # 0.4 K/mm3 (0.1-1.0); Neutrophils # 3.3 K/mm3 (1.8-7.8); Neutrophils % 53.3 % (37.0-80.0); Platelet Count 187 K/mm3 (142-424); Red Blood Count 5.06 M/mm3 (4.60-6.20); Red Cell Distribution Width 13.4 % (11.5-17.5); White Blood Count 6.3 K/mm3 (4.8-10.8)
[2018-09-13 14:30] LABS: Alanine Aminotransferase 66 U/L (12-78); Albumin Level 3.9 gm/dL (3.4-5.0); Albumin/Globulin Ratio 1.2 (1.1-1.8); Alkaline Phosphatase 104 U/L (46-116); Anion Gap 14.7 mEq/L (5-15); Aspartate Amino Transferase 27 U/L (15-37); Bilirubin,Total 0.4 mg/dL (0.2-1.0); Blood Urea Nitrogen 13 mg/dL (7-18); Calcium 9.6 mg/dL (8.5-10.1); Carbon Dioxide 29 mmol/L (21.0-32.0); Chloride 102 mmol/L (98-107); Chol/HDL Ratio 8.8 (1-3.5); Cholesterol 175 mg/dL (140-200); Creatinine,Serum 1.08 mg/dL (0.70-1.30); Estimated Glomerular Filt Rate 72 ml/min (>60); GFR (African American) 87 ML/MIN (>60); Globulin 3.3 gm/dl (1.3-3.2); Glucose 220 mg/dL (74-106); HDL Cholesterol 20 mg/dL (27-67); LDL Cholesterol 106 mg/dL (0-130); Potassium 4.7 mmoL/L (3.5-5.1); Sodium 141 mmol/L (136-145); Total Protein,Serum 7.2 gm/dL (6.4-8.2); Triglycerides 243 mg/dL (30-200); VLDL Cholesterol 49 mg/dL (0-40)
[2018-09-13 21:49] LABS: Hemoglobin A1C 8.4 % (0.0-7.0)
== END ==
PROVIDERS: Visit Provider Internal Medicine Adolescent Medicine
DX: E11.69 Type 2 diabetes mellitus with other specified complication (principal); Z79.84 Long term (current) use of oral hypoglycemic drugs; J18.0 Bronchopneumonia, unspecified organism
CPT/HCPCS: 36415; 80053; 80061; 83036; 85025

== ENCOUNTER → 2020-10-15 16:23 | Outpatient (CLI) | payer OTHER, SELFPAY ==
--- NOTE | 2020-10-15 | CT_ITS ---
PROCEDURE: CT HEAD/BRAIN WO CON CLINICAL INDICATION: Right-sided facial weakness COMPARISON: No exams were available for comparison TECHNIQUE: Axial images obtained. All CT scans at the facility use one or more dose reduction, viz: automated exposure control, ma/kV adjustment per patient size (including targeted exams where dose is matched to indication, i.e. head), or iterative reconstruction technique. FINDINGS: No midline shift, mass effect, intracranial hemorrhage, hydrocephalus, or extra-axial fluid collection is evident. There is moderate opacification of the right frontal ethmoid region with mild bilateral ethmoid mucosal thickening and small bilateral mastoid effusions. The calvarium has an unremarkable IMPRESSION: 1. No acute intracranial findings. 2. Paranasal sinus and mastoid sinus disease. Dictated by: Yrn Graves MD 10/15/2020 17:01 Yrn Graves MD in [place] 10/15/2020 17:01
== END ==
PROVIDERS: PCP Internal Medicine; Visit Provider Internal Medicine
DX: R29.810 Facial weakness (principal)
CPT/HCPCS: 70450

== ENCOUNTER → 2020-12-10 17:34 | Outpatient (CLI) | payer OTHER, SELFPAY ==
[2020-12-10 17:58] LABS: Hemoglobin A1C 7.8 % (4.0-6.0)
== END ==
PROVIDERS: Visit Provider Internal Medicine
DX: E11.9 Type 2 diabetes mellitus without complications (principal); Z79.84 Long term (current) use of oral hypoglycemic drugs
CPT/HCPCS: 83036

== ENCOUNTER → 2021-03-18 16:42 | Outpatient (CLI) | payer OTHER, SELFPAY ==
[2021-03-18 18:17] LABS: Hemoglobin A1C 7.5 % (4.0-6.0)
[2021-03-18 18:30] LABS: Alanine Aminotransferase 43 U/L (12-78); Albumin Level 4.3 g/dl (3.5-5.0); Albumin/Globulin Ratio 1.8 (1.1-1.8); Alkaline Phosphatase 75 U/L (38-126); Anion Gap 12.9 mEq/L (5-15); Aspartate Amino Transferase 35 U/L (17-59); Bilirubin,Total 0.4 mg/dl (0.2-1.3); Blood Urea Nitrogen 13 mg/dl (9-20); Calcium 9.4 mg/dl (8.4-10.2); Carbon Dioxide 30 mmol/L (22.0-30.0); Chloride 102 mmol/L (98-107); Cholesterol 155 mg/dl (140-200); Estimated Glomerular Filt Rate 88 ml/min (>60); GFR (African American) 106 ML/MIN (>60); Globulin 2.4 g/dL (1.3-3.2); Glucose 143 mg/dl (74-100); HDL Cholesterol 31 mg/dl (40-60); Potassium 4.9 mmoL/L (3.5-5.1); Sodium 140 mmol/L (136-145); Total Protein,Serum 6.7 g/dl (6.3-8.2); Triglycerides 230 mg/dl (30-150); VLDL Cholesterol 46 mg/dL (0-40)
[2021-03-18 18:41] LABS: Direct LDL Cholesterol 88.27 mg/dL (100-129)
[2021-03-18 19:01] LABS: Prostate Specific Ag Screen 0.4 ng/ml (0.0-4.0)
== END ==
PROVIDERS: Visit Provider Internal Medicine
DX: E11.9 Type 2 diabetes mellitus without complications (principal); E78.5 Hyperlipidemia, unspecified; J44.9 Chronic obstructive pulmonary disease, unspecified; Z12.5 Encounter for screening for malignant neoplasm of prostate
CPT/HCPCS: 36415; 80053; 80061; 83036; G0103

== ENCOUNTER → 2021-10-06 16:04 | Outpatient (CLI) | payer OTHER, SELFPAY ==
--- NOTE | 2021-10-06 16:10 | XR_ITS ---
FINAL REPORT CLINICAL HISTORY: FALL FROM 10 DAYS AGO. LUMBAR SPINE PAIN FINDINGS: AP, lateral, and oblique views of the lumbar spine were obtained. There is no acute fracture or acute malalignment. Vertebral body height is preserved. There is mild degenerative disease. No acute paraspinal abnormality is identified. IMPRESSION: No acute osseous abnormalities lumbar spine. Reviewed, Interpreted and Dictated by Krystal Delatorre MD Transcribed by Liat Bhandari Authenticated by Krystal Delatorre MD on 10/06/2021 04:58:19 PM [facility]
== END ==
PROVIDERS: PCP Internal Medicine; Visit Provider Internal Medicine
DX: M54.50 Low back pain, unspecified (principal); W19.XXXA Unspecified fall, initial encounter
CPT/HCPCS: 72110

== ENCOUNTER → 2021-11-23 13:05 | Outpatient (CLI) | payer OTHER, SELFPAY ==
[2021-11-23 13:14] LABS: Microscopic, Urine URINE MICROSCOPIC (MICROSCOPIC)
[2021-11-23 13:27] LABS: Appearance,Urine CLEAR (Clear); Bilirubin,Urine Negative (Negative); Blood, Urine Negative (Negative); Color,Urine YELLOW (Yellow); Glucose,Urine (UA) 3+ (Negative); Ketones,Urine Negative (Negative); Leukocyte Esterase,Urine Negative (Negative); Nitrate,Urine Negative (Negative); PH,Urine 5.5 (5.0-8.5); Protein,Urine Negative (Negative); Specific Gravity, Urine 1.025 (1.005-1.030); Urobilinogen,Urine 0.2 EU/dl (0.2)
[2021-11-23 13:31] LABS: Basophils # 0.1 K/mm3 (0-0.2); Basophils % 1.8 % (0.1-2.0); Eosinophils # 0.3 K/mm3 (0.0-0.4); Eosinophils % 4.3 % (0.1-12.0); Hematocrit 45.4 % (42.0-52.0); Lymphocytes # 2.2 K/mm3 (0.7-4.5); Lymphocytes % 27.4 % (10-50); Mean Corpuscular HGB Conc 33.1 g/dL (31.8-35.4); Mean Corpuscular Hemoglobin 28.6 pg (27.0-31.2); Mean Corpuscular Volume 86.2 fl (80-94); Mean Platelet Volume 10.4 fl (7.4-10.4); Monocytes # 0.4 K/mm3 (0.1-1.0); Neutrophils # 4.9 K/mm3 (1.8-7.8); Neutrophils % 61.5 % (37.0-80.0); Platelet Count 246 K/mm3 (142-424); Red Blood Count 5.27 M/mm3 (4.60-6.20); Red Cell Distribution Width 13.8 % (11.5-17.5); White Blood Count 7.9 K/mm3 (4.8-10.8)
[2021-11-23 13:44] LABS: Bacteria,Urine Trace /lpf; Squamous Epithelial Cell,Urine Occasional #/hpf (0-5)
[2021-11-23 13:46] LABS: Chloride 93 mmol/L (98-107); Hemoglobin A1C 10.3 % (4.0-6.0)
[2021-11-23 13:47] LABS: Potassium 4.3 mmoL/L (3.5-5.1); Sodium 130 mmol/L (136-145)
[2021-11-23 13:49] LABS: Alanine Aminotransferase 106 U/L (12-78); Alkaline Phosphatase 123 U/L (38-126); Amylase 41 U/L (30-110); Anion Gap 15.3 mEq/L (5-15); Aspartate Amino Transferase 60 U/L (17-59); Bilirubin,Total 1.1 mg/dl (0.2-1.3); Blood Urea Nitrogen 14 mg/dl (9-20); Carbon Dioxide 26 mmol/L (22.0-30.0); Cholesterol 225 mg/dl (140-200); Estimated Glomerular Filt Rate 78 ml/min (>60); GFR (African American) 94 ML/MIN (>60)
[2021-11-23 13:50] LABS: Albumin Level 4.1 g/dl (3.5-5.0); Albumin/Globulin Ratio 1.6 (1.1-1.8); Calcium 9.6 mg/dl (8.4-10.2); Chol/HDL Ratio 10.2 (1-3.5); Globulin 2.6 g/dL (1.3-3.2); HDL Cholesterol 22 mg/dl (40-60); Total Protein,Serum 6.7 g/dl (6.3-8.2)
[2021-11-23 14:08] LABS: Direct LDL Cholesterol 50.57 mg/dL (100-129); Triglycerides 852 mg/dl (30-150)
[2021-11-23 14:10] LABS: Glucose 512 mg/dl (74-100)
== END ==
PROVIDERS: PCP Internal Medicine; Visit Provider Internal Medicine
DX: R10.13 Epigastric pain (principal); J44.9 Chronic obstructive pulmonary disease, unspecified; F32.9 Major depressive disorder, single episode, unspecified; E11.9 Type 2 diabetes mellitus without complications; E78.5 Hyperlipidemia, unspecified; Z79.84 Long term (current) use of oral hypoglycemic drugs
CPT/HCPCS: 36415; 80053; 80061; 81001; 82150; 83036; 85025

== ENCOUNTER → 2021-12-09 08:09 | Outpatient (CLI) | payer OTHER, SELFPAY ==
--- NOTE | 2021-12-09 08:12 | US_ITS ---
FINAL REPORT TECHNIQUE: Sonographic images of the abdomen were obtained in all four quadrants. CLINICAL HISTORY: EPIGASTRIC PAIN FINDINGS: The liver is fatty infiltrated. There is no focal hepatic lesion or intrahepatic biliary dilatation. The gallbladder is contracted around gallstones. There is no pericholecystic fluid collection or gallbladder wall thickening. The common duct measures 3 mm and is within normal limits. The pancreas has a normal sonographic appearance. The right and left kidneys measure 10.2 and 9.8 cm respectively. There is no hydronephrosis, mass, or stone. The spleen is enlarged and measures 14 cm in [id number]-re-kwwr length. There is no focal splenic lesion. There is no ascites. The visualized abdominal aorta and inferior vena cava are within normal limits. IMPRESSION: Fatty liver and splenomegaly. Cholelithiasis. Reviewed, Interpreted and Dictated by Krystal Delatorre MD Transcribed by Tara Clemente Authenticated and [facility]
--- NOTE | 2021-12-09 08:13 | CT_ITS ---
FINAL REPORT CLINICAL HISTORY: H/O NICOTINE DEPENDENCE smoker. 1 ppd x 35 years. copd family hx of lung cancer FINDINGS: Low-Dose Chest CT Axial images were obtained from the lung apex to the mid abdomen by computed tomography. Low-dose protocol was utilized. CTDI vol (mGy): 2.90 DLP (mGy-cm): 108.38 There is no axillary adenopathy. There is no hilar or mediastinal adenopathy. The heart is proper size. There is no pericardial or pleural effusion. Limited images of the upper abdomen demonstrate gallstone within a contracted gallbladder. Lung window images demonstrate a 2 mm left apical nodule on series 2, image 48. The lungs are otherwise clear. There are changes of early emphysema. There is right greater than left lower lobe scarring. IMPRESSION: Lung RADS category 2. Recommend 12 month follow-up low-dose chest CT. Gallstones within the gallbladder. Reviewed, Interpreted and Dictated by Krystal Delatorre MD Transcribed by Liat Bhandari Authenticated and . [facility]
== END ==
PROVIDERS: PCP Internal Medicine; Visit Provider Internal Medicine
DX: Z87.891 Personal history of nicotine dependence (principal); Z12.2 Encounter for screening for malignant neoplasm of respiratory organs; R10.13 Epigastric pain
CPT/HCPCS: 71271; 76700

== ENCOUNTER → 2022-03-08 15:24 | Outpatient (CLI) | payer OTHER, SELFPAY ==
[2022-03-08 16:33] LABS: Basophils # 0.1 K/mm3 (0-0.2); Basophils % 1.4 % (0.1-2.0); Eosinophils # 0.2 K/mm3 (0.0-0.4); Eosinophils % 3.6 % (0.1-12.0); Hematocrit 47.9 % (42.0-52.0); Hemoglobin 15.3 g/dL (14.1-18.0); Hemoglobin A1C 13.5 % (4.0-6.0); Lymphocytes # 2.6 K/mm3 (0.7-4.5); Lymphocytes % 43.7 % (10-50); Mean Corpuscular HGB Conc 32.1 g/dL (31.8-35.4); Mean Corpuscular Hemoglobin 27.5 pg (27.0-31.2); Mean Corpuscular Volume 85.9 fl (80-94); Mean Platelet Volume 9.2 fl (7.4-10.4); Monocytes # 0.3 K/mm3 (0.1-1.0); Monocytes % 5.1 % (1.7-9.3); Neutrophils # 2.7 K/mm3 (1.8-7.8); Neutrophils % 46.2 % (37.0-80.0); Platelet Count 195 K/mm3 (142-424); Red Blood Count 5.57 M/mm3 (4.60-6.20); Red Cell Distribution Width 12.9 % (11.5-17.5); White Blood Count 5.9 K/mm3 (4.8-10.8)
[2022-03-08 16:46] LABS: Blood Urea Nitrogen 12 mg/dl (9-20); Calcium 8.8 mg/dl (8.4-10.2); Carbon Dioxide 24 mmol/L (22.0-30.0); Chloride 98 mmol/L (98-107); Estimated Glomerular Filt Rate 88 ml/min (>60); GFR (African American) 106 ML/MIN (>60); Glucose 309 mg/dl (74-100); Sodium 136 mmol/L (136-145)
== END ==
PROVIDERS: PCP Internal Medicine; Visit Provider Internal Medicine
DX: U07.1 COVID-19 (principal)
CPT/HCPCS: 36415; 80048; 83036; 85025; C9803; U0003; U0005

== ENCOUNTER 2022-08-24 08:26 | Day surgery (SDC) | payer OTHER, SELFPAY ==
[2022-08-13 12:15] VITALS: BMI 35.4
[2022-08-24] VITALS (7 sets, daily range): BP systolic 98–146; BP diastolic 59–76; PULSE 57–71; RESP 15–18; TEMP 36.5–36.7; O2SAT 90–98
[2022-08-24 08:58] LABS: POC Glucose,Bedside 245 (70-110)
--- NOTE | 2022-08-24 08:59 | P.PN_ITS ---
[facility] Disclaimer: The information contained in this section may have been updated after the patient was seen, as this information can be updated by other users. Medical History COPD (chronic obstructive pulmonary disease) Diabetes mellitus, type 2 Empyema Sleep apnea Family History Other No significant family history Social History Smoking Status: Current every day smoker tobacco type: cigarettes packs per day: 1 alcohol intake: current substance use type: denies use current occupational status: employed Travel in the last 8 weeks: None household members: spouse housing: house caffeine: Yes [facility] Anesthesia Checklist Patient Identification Patient Identification: Arm Band and Verbal (Name & ) Structural Data Admitted From: Home Planned Operative Procedure/s: Colonoscopy Consent for Planned Operative Procedure(s) Verified: Yes NPO Status Verified Time NPO: 00:00 Additional verifications Anesthesia Reactions: No Hx Blood Transfusions: No Blood Transfusion Reaction: No Airway Assessment C-Spine Mobility Assessed: Yes TMJ Mobility Assessed: Yes Dentition: Good Dentition Neurological Assessment Level of Consciousness: Awake Hx Seizures: No Numbness or tingling in extremities: No Anesthesia Plan Anesthesia Risk discussed: Yes Anesthesia Plan: Verified ASA Class: III Anesthesia Type: MAC
--- NOTE | 2022-08-24 09:21 | HMH.SCOPE ---
Procedure: Date: 08/24/22 Patient Date of :: 1965 Procedure Performed:: Limited flexible sigmoidoscopy (colonoscopy aborted) Indications:: History of colon polyps Performing Provider:: Octavio Madera MD Referring Provider:: . Sedation:: Monitored anesthesia care Procedure:: After informed consent was obtained the patient was taken to the endoscopy suite. Sedation ensued after the patient was transferred to the left lateral decubitus position. Pulse, blood pressure, and oxygen saturation were monitored throughout the procedure. Digital rectal exam revealed fairly significant hemorrhoidal cushions with patchy inflammatory change. The colonoscope was placed in position. Bowel preparation was exceptionally poor. A limited flexible sigmoidoscopy was completed. Further advancement was deemed unwarranted. The colonoscope was carefully removed and the patient was transferred to recovery in stable condition. Please see findings and specimens below for detail. Findings:: Bowel preparation poor Colonoscopy aborted Hemorrhoidal cushions with patchy inflammatory change Specimens:: None Recommendations:: Short-term repeat colonoscopy with alternate/extended bowel preparation Complications:: Colonoscopy aborted secondary to poor bowel preparation Estimated blood obtained (mL): 0
== END 2022-08-24 10:00 | disposition home or self-care (01) ==
PROVIDERS: PCP Internal Medicine; Visit Provider Surgery
PROC: 0DJD8ZZ Inspection of Lower Intestinal Tract, Via Natural or Artificial Opening Endoscopic (ICD-10-PCS; CPT 45330; principal; 2022-08-24 09:30)
DX: Z12.11 Encounter for screening for malignant neoplasm of colon (principal); Z86.010 Personal history of colon polyps; Z91.199 Patient's noncompliance with other medical treatment and regimen due to unspecified reason; Z53.8 Procedure and treatment not carried out for other reasons; E11.9 Type 2 diabetes mellitus without complications
CPT/HCPCS: 45378; 82962; J2704

== ENCOUNTER 2022-10-19 11:35 | Day surgery (SDC) | payer OTHER, SELFPAY ==
[2022-09-27 11:37] VITALS: BMI 34.9
[2022-10-19 11:55] VITALS: BP 152/86; PULSE 62; RESP 17; TEMP 36.4; O2SAT 96
--- NOTE | 2022-10-19 11:56 | EXP.ANES.CKL ---
[facility] Disclaimer: The information contained in this section may have been updated after the patient was seen, as this information can be updated by other users. Medical History COPD (chronic obstructive pulmonary disease) Diabetes mellitus, type 2 Empyema Hyperlipidemia Sleep apnea Surgical History (Updated 10/19/22 @ 11:52 by Jody Lira RN) H/O colonoscopy Family History Other No significant family history Social History Smoking Status: Current every day smoker tobacco type: cigarettes packs per day: 1 alcohol intake: current substance use type: denies use current occupational status: employed Travel in the last 8 weeks: None household members: spouse housing: house caffeine: Yes [facility] Anesthesia Checklist Patient Identification Patient Identification: Arm Band and Verbal (Name & ) Structural Data Planned Operative Procedure/s: colonoscopy Consent for Planned Operative Procedure(s) Verified: Yes Verified Documents: Surgical Consent and History and Physical NPO Status Verified Time NPO: 00:00 Additional verifications Anesthesia Reactions: No Hx Blood Transfusions: No Blood Transfusion Reaction: No Cardiovascular Assessment Peripheral Edema: No Airway Assessment C-Spine Mobility Assessed: Yes TMJ Mobility Assessed: Yes Dentition: Good Dentition Neurological Assessment Level of Consciousness: Awake and Alert Hx Seizures: No Genitourinary Assessment Urinary Incontinence: None Anesthesia Plan Anesthesia Risk discussed: Yes ASA Class: II Anesthesia Type: IV sedation
--- NOTE | 2022-10-19 11:59 | P.PN_ITS ---
[facility] Disclaimer: The information contained in this section may have been updated after the patient was seen, as this information can be updated by other users. Medical History COPD (chronic obstructive pulmonary disease) Diabetes mellitus, type 2 Empyema Hyperlipidemia Sleep apnea Surgical History (Updated 10/19/22 @ 11:52 by Jody Lira RN) H/O colonoscopy Family History Other No significant family history Social History Smoking Status: Current every day smoker tobacco type: cigarettes packs per day: 1 alcohol intake: current substance use type: denies use current occupational status: employed Travel in the last 8 weeks: None household members: spouse housing: house caffeine: Yes [facility] Anesthesia Checklist Patient Identification Patient Identification: Arm Band and Verbal (Name & ) Structural Data Planned Operative Procedure/s: intrathecal narcotics Consent for Planned Operative Procedure(s) Verified: Yes Verified Documents: History and Physical NPO Status Verified Time NPO: 00:00 Additional verifications Patient : Yes Anesthesia Reactions: No Hx Blood Transfusions: No Blood Transfusion Reaction: No Airway Assessment C-Spine Mobility Assessed: Yes TMJ Mobility Assessed: Yes Dentition: Good Dentition Neurological Assessment Level of Consciousness: Awake and Alert Hx Seizures: No Numbness or tingling in extremities: No Anesthesia Plan Anesthesia Risk discussed: Yes ASA Class: II (full term) Anesthesia Type: Spinal
[2022-10-19 12:09] LABS: POC Glucose,Bedside 312 (70-110)
--- NOTE | 2022-10-19 12:12 | P.PCN_ITS ---
Procedure: Date: 10/19/22 Patient Date of :: 1965 Procedure Performed:: Colonoscopy Indications:: History of colon polyps Last colonoscopy attempted in August of this year was aborted due to poor bowel p reparation. Colonoscopy in January 2016 revealed approximately 20 polyps. A colonoscopy in May 2019 revealed approximately 11 polyps. Diverticulosis and a submucosal lipoma also noted. Performing Provider:: Octavio Madera MD Referring Provider:: . Sedation:: Monitored anesthesia care Procedure:: After informed consent was obtained the patient was taken to the endoscopy suite. Sedation ensued after the patient was transferred to the left lateral decubitus position. Pulse, blood pressure, and oxygen saturation were monitored throughout the procedure. Digital rectal exam revealed no significant abnormality. The colonoscope was placed in position. The entire colon was evaluated. The colonoscope was carefully removed and the patient was transferred to recovery in stable condition. Please see findings and specimens below for detail. Findings:: Bowel preparation poor Hemorrhoidal cushions/tags Unchanged submucosal lipomatous Polyps (see specimens) Specimens:: Complex lobulated polyp at 60 cm (cold snare) Recommendations:: Follow-up pathology The patient warrants gastroenterology evaluation for likely chronic constipation. Fairly short-term repeat colonoscopy warranted secondary to limitations in visualization and history of multiple complex polyps. Timing of repeat colonoscopy deferred to the gastroenterology service. Complications:: Bowel preparation poor Estimated blood obtained (mL): 1
[2022-10-19 12:13] VITALS: O2SAT 96
[2022-10-19 12:53] VITALS: BP 81/46; PULSE 59; RESP 14; TEMP 36.4; O2SAT 99
[2022-10-19 13:03] VITALS: BP 84/43; PULSE 55; RESP 14; O2SAT 99
[2022-10-19 13:11] LABS: POC Glucose,Bedside 252 (70-110)
[2022-10-19 13:13] VITALS: BP 90/47; PULSE 54; RESP 14; O2SAT 100
[2022-10-19 13:23] VITALS: BP 105/60; PULSE 59; RESP 18; O2SAT 100
== END 2022-10-19 13:35 | disposition home or self-care (01) ==
PROVIDERS: PCP Internal Medicine; Visit Provider Surgery
PROC: 0DJD8ZZ Inspection of Lower Intestinal Tract, Via Natural or Artificial Opening Endoscopic (ICD-10-PCS; CPT 45385; principal; 2022-10-19 12:30)
DX: Z12.11 Encounter for screening for malignant neoplasm of colon (principal); D12.4 Benign neoplasm of descending colon; E11.9 Type 2 diabetes mellitus without complications; Z86.010 Personal history of colon polyps; F17.210 Nicotine dependence, cigarettes, uncomplicated; Z79.899 Other long term (current) drug therapy
CPT/HCPCS: 45385; 82962

== ENCOUNTER → 2023-01-26 16:19 | Outpatient (CLI) | payer OTHER, SELFPAY ==
[2023-01-26 17:47] LABS: Basophils # 0.1 K/mm3 (0-0.2); Eosinophils # 0.2 K/mm3 (0.0-0.4); Eosinophils % 2.1 % (0.1-12.0); Hematocrit 49.8 % (42.0-52.0); Hemoglobin 16.1 g/dL (14.1-18.0); Lymphocytes # 3.3 K/mm3 (0.7-4.5); Lymphocytes % 32.8 % (10-50); Mean Corpuscular HGB Conc 32.3 g/dL (31.8-35.4); Mean Corpuscular Hemoglobin 26.7 pg (27.0-31.2); Mean Corpuscular Volume 82.5 fl (80-94); Mean Platelet Volume 10.2 fl (7.4-10.4); Monocytes # 0.5 K/mm3 (0.1-1.0); Monocytes % 4.7 % (1.7-9.3); Neutrophils # 5.9 K/mm3 (1.8-7.8); Neutrophils % 59.3 % (37.0-80.0); Platelet Count 228 K/mm3 (142-424); Red Blood Count 6.04 M/mm3 (4.60-6.20); Red Cell Distribution Width 14.4 % (11.5-17.5)
[2023-01-26 18:08] LABS: Alanine Aminotransferase 52 U/L (12-78); Albumin Level 4.4 g/dl (3.5-5.0); Albumin/Globulin Ratio 1.6 (1.1-1.8); Alkaline Phosphatase 96 U/L (38-126); Anion Gap 17.7 mEq/L (5-15); Aspartate Amino Transferase 35 U/L (17-59); Bilirubin,Total 0.8 mg/dl (0.2-1.3); Blood Urea Nitrogen 16 mg/dl (9-20); Carbon Dioxide 29 mmol/L (22.0-30.0); Chloride 99 mmol/L (98-107); Chol/HDL Ratio 7.5 (1-3.5); Cholesterol 166 mg/dl (140-200); Estimated Glomerular Filt Rate 69 ml/min (>60); GFR (African American) 84 ML/MIN (>60); Globulin 2.8 g/dL (1.3-3.2); Glucose 180 mg/dl (74-100); HDL Cholesterol 22 mg/dl (40-60); Potassium 4.7 mmoL/L (3.5-5.1); Sodium 141 mmol/L (136-145); Total Protein,Serum 7.2 g/dl (6.3-8.2); Triglycerides 314 mg/dl (30-150); VLDL Cholesterol 63 mg/dL (0-40)
[2023-01-26 18:27] LABS: Free T4 (Free Thyroxine) 0.98 ng/dl (0.78-2.19)
[2023-01-26 18:35] LABS: Erythrocyte Sedimentation Rate 4 mm/hr (0-20)
[2023-01-26 18:38] LABS: Thyroid Stimulating Hormone 1.52 uIU/mL (0.465-4.68)
[2023-01-26 19:14] LABS: Vitamin B12 574 pg/mL (239-931)
[2023-01-26 20:00] LABS: Folate 6.97 ng/mL
[2023-01-26 20:01] LABS: Direct LDL Cholesterol 81.53 mg/dL (100-129)
[2023-01-28 11:55] LABS: Rapid Plasma Reagin Ab Titer Non Reactive titer (NonRea<1:1)
== END ==
PROVIDERS: PCP Internal Medicine; Visit Provider Internal Medicine
DX: R41.3 Other amnesia (principal); E78.5 Hyperlipidemia, unspecified; E11.9 Type 2 diabetes mellitus without complications; Z79.84 Long term (current) use of oral hypoglycemic drugs
CPT/HCPCS: 36415; 80053; 80061; 82607; 82746; 84439; 84443; 85025; 85651; 86593

== ENCOUNTER 2023-08-09 11:38 | Outpatient (CLI) | payer OTHER, SELFPAY ==
[2023-08-09 12:58] LABS: Alanine Aminotransferase 28 U/L (12-78); Albumin Level 4.2 g/dl (3.5-5.0); Albumin/Globulin Ratio 1.9 (1.1-1.8); Alkaline Phosphatase 69 U/L (38-126); Anion Gap 14.2 mEq/L (5-15); Aspartate Amino Transferase 22 U/L (17-59); Bilirubin,Total 0.4 mg/dl (0.2-1.3); Blood Urea Nitrogen 29 mg/dl (9-20); Calcium 9.8 mg/dl (8.4-10.2); Carbon Dioxide 29 mmol/L (22.0-30.0); Chloride 101 mmol/L (98-107); Chol/HDL Ratio 5.7 (1-3.5); Cholesterol 189 mg/dl (140-200); Estimated Glomerular Filt Rate 77 ml/min (>60); GFR (African American) 93 ML/MIN (>60); Globulin 2.2 g/dL (1.3-3.2); Glucose 281 mg/dl (74-100); HDL Cholesterol 33 mg/dl (40-60); Potassium 4.2 mmoL/L (3.5-5.1); Sodium 140 mmol/L (136-145); Total Protein,Serum 6.4 g/dl (6.3-8.2); Triglycerides 230 mg/dl (30-150); VLDL Cholesterol 46 mg/dL (0-40)
[2023-08-09 13:08] LABS: Direct LDL Cholesterol 97.75 mg/dL (100-129)
[2023-08-09 13:54] LABS: Prostate Specific Ag Screen 0.4 ng/ml (0.0-4.0)
[2023-08-09 14:24] LABS: Creatinine,Urine Random 40 mg/dL (Not Estab.); Microalbumin < 6.000 mg/L (0-16.7)
== END 2023-08-09 23:59 ==
LOC: LAB.DROPOF 11:39
PROVIDERS: PCP Internal Medicine; Visit Provider Internal Medicine
DX: E11.9 Type 2 diabetes mellitus without complications (principal); E78.5 Hyperlipidemia, unspecified; F32.9 Major depressive disorder, single episode, unspecified; F17.209 Nicotine dependence, unspecified, with unspecified nicotine-induced disorders; J44.9 Chronic obstructive pulmonary disease, unspecified; Z68.39 Body mass index [BMI] 39.0-39.9, adult; Z86.010 Personal history of colon polyps
CPT/HCPCS: 80053; 80061; 82043; 82570; G0103

== ENCOUNTER 2023-11-08 16:17 | Outpatient (CLI) | payer OTHER, SELFPAY ==
[2023-11-08 14:38] LABS: Hemoglobin A1C 6.4 % (4.0-6.0)
== END 2023-11-08 23:59 | disposition home or self-care (01) ==
LOC: LAB.DROPOF 16:17
PROVIDERS: PCP Internal Medicine; Visit Provider Internal Medicine
DX: E11.9 Type 2 diabetes mellitus without complications (principal); Z79.4 Long term (current) use of insulin; Z79.84 Long term (current) use of oral hypoglycemic drugs; Z79.85 Long-term (current) use of injectable non-insulin antidiabetic drugs
CPT/HCPCS: 83036

== ENCOUNTER 2024-02-08 13:59 | Outpatient (CLI) | payer OTHER, SELFPAY ==
[2024-02-08 13:58] LABS: Basophils # 0.1 K/mm3 (0-0.2); Basophils % 1.1 % (0.1-2.0); Eosinophils # 0.2 K/mm3 (0.0-0.4); Eosinophils % 1.6 % (0.1-12.0); Hematocrit 47.6 % (42.0-52.0); Hemoglobin 15.1 g/dL (14.1-18.0); Lymphocytes # 2.5 K/mm3 (0.7-4.5); Lymphocytes % 23.7 % (10-50); Mean Corpuscular HGB Conc 31.7 g/dL (31.8-35.4); Mean Corpuscular Hemoglobin 28.6 pg (27.0-31.2); Mean Corpuscular Volume 90.3 fl (80-94); Mean Platelet Volume 11.2 fl (7.4-10.4); Monocytes # 0.6 K/mm3 (0.1-1.0); Monocytes % 5.7 % (1.7-9.3); Neutrophils # 7.3 K/mm3 (1.8-7.8); Platelet Count 205 K/mm3 (142-424); Red Blood Count 5.27 M/mm3 (4.60-6.20); White Blood Count 10.7 K/mm3 (4.8-10.8)
[2024-02-08 14:36] LABS: Alanine Aminotransferase 28 U/L (12-78); Albumin Level 4.1 g/dl (3.5-5.0); Albumin/Globulin Ratio 2.1 (1.1-1.8); Alkaline Phosphatase 77 U/L (38-126); Anion Gap 10.4 mEq/L (5-15); Aspartate Amino Transferase 25 U/L (17-59); Bilirubin,Total 0.6 mg/dl (0.2-1.3); Blood Urea Nitrogen 23 mg/dl (9-20); Calcium 9.5 mg/dl (8.4-10.2); Carbon Dioxide 29 mmol/L (22.0-30.0); Chloride 104 mmol/L (98-107); Chol/HDL Ratio 5.2 (1-3.5); Cholesterol 120 mg/dl (140-200); Estimated Glomerular Filt Rate 62 ml/min (>60); GFR (African American) 76 ML/MIN (>60); Glucose 71 mg/dl (74-100); HDL Cholesterol 23 mg/dl (40-60); Potassium 4.4 mmoL/L (3.5-5.1); Sodium 139 mmol/L (136-145); Total Protein,Serum 6.1 g/dl (6.3-8.2); Triglycerides 179 mg/dl (30-150); VLDL Cholesterol 36 mg/dL (0-40)
[2024-02-08 14:46] LABS: Direct LDL Cholesterol 68.17 mg/dL (100-129)
[2024-02-08 14:50] LABS: Hemoglobin A1C 5.9 % (4.0-6.0)
== END 2024-02-08 23:59 | disposition home or self-care (01) ==
LOC: LAB.DROPOF 14:00
PROVIDERS: PCP Internal Medicine; Visit Provider Internal Medicine
DX: E11.9 Type 2 diabetes mellitus without complications (principal); I10 Essential (primary) hypertension; E78.5 Hyperlipidemia, unspecified; G25.81 Restless legs syndrome; Z72.0 Tobacco use; Z79.4 Long term (current) use of insulin; Z79.84 Long term (current) use of oral hypoglycemic drugs; Z79.85 Long-term (current) use of injectable non-insulin antidiabetic drugs
CPT/HCPCS: 80053; 80061; 83036; 85025

== ENCOUNTER 2024-03-19 13:40 | Outpatient (CLI) | payer OTHER, SELFPAY ==
--- NOTE | 2024-03-19 13:44 | XR_ITS ---
PROCEDURE INFORMATION: Exam: XR Right Shoulder Exam date and time: 03/19/2024 1:55 PM Age: 58 years old Clinical indication: Pain; Shoulder; Right; Additional info: Right shoulder pain TECHNIQUE: Imaging protocol: Radiologic exam of the right shoulder. Views: 2 or more views. COMPARISON: CR XR SHOULDER RT MIN 2V 03/19/2024 1:55 PM FINDINGS: Bones/joints: No evidence of acute fracture or dislocation. Moderate degenerative osteoarthrosis in the glenohumeral and acromioclavicular joints. Soft tissues: Unremarkable. IMPRESSION: 1. No evidence of acute osseous abnormality in the right shoulder. 2. Moderate degenerative osteoarthrosis in the glenohumeral and acromioclavicular joints.
--- NOTE | 2024-03-19 13:44 | XR_ITS ---
PROCEDURE INFORMATION: Exam: XR Right Hip Exam date and time: 03/19/2024 1:55 PM Age: 58 years old Clinical indication: Hip pain; Bilateral; Additional info: Right hip pain TECHNIQUE: Imaging protocol: Radiologic exam of the right hip. Views: 2 or 3 views hip with pelvis when performed. COMPARISON: CR XR HIP RT 2-3V W/PELVIS 03/19/2024 1:55 PM FINDINGS: Bones/joints: No evidence of acute fracture or malalignment. Hydroxyapatite deposition along the lesser trochanter compatible with calcific tendinopathy. Accessory os acetabulum incidentally noted. Soft tissues: Unremarkable. IMPRESSION: 1. No evidence of acute osseous abnormality in the right hip. 2. Hydroxyapatite deposition along the lesser trochanter compatible with calcific tendinopathy.
--- NOTE | 2024-03-19 13:44 | XR_ITS ---
PROCEDURE INFORMATION: Exam: XR Left Hip Exam date and time: 03/19/2024 1:55 PM Age: 58 years old Clinical indication: Hip pain; Bilateral; Additional info: Left hip pain TECHNIQUE: Imaging protocol: Radiologic exam of the left hip. Views: 2 or 3 views hip with pelvis when performed. COMPARISON: CR XR LUMBAR SPINE MIN 4V 10/06/2021 4:13 PM FINDINGS: Bones/joints: No evidence of acute fracture or malalignment. Small, well-corticated exostosis along the lesser trochanter. Soft tissues: Unremarkable. IMPRESSION: 1. No evidence of acute osseous abnormality in the left hip. 2. Small, well-corticated exostosis along the lesser trochanter. Findings could represent bony remodeling reflecting chronic sequela of prior trauma or possibly a small benign osteochondroma.
== END 2024-03-19 23:59 | disposition home or self-care (01) ==
LOC: RAD 13:41
PROVIDERS: PCP Internal Medicine; Visit Provider Internal Medicine
DX: M25.551 Pain in right hip (principal); M25.511 Pain in right shoulder; M25.552 Pain in left hip
CPT/HCPCS: 73030; 73502

== ENCOUNTER 2024-05-07 15:23 | Outpatient (CLI) | payer OTHER, SELFPAY ==
[2024-05-07 13:33] LABS: Alanine Aminotransferase 31 U/L (12-78); Albumin Level 4.2 g/dl (3.5-5.0); Albumin/Globulin Ratio 1.9 (1.1-1.8); Alkaline Phosphatase 87 U/L (38-126); Anion Gap 13.7 mEq/L (5-15); Aspartate Amino Transferase 30 U/L (17-59); Bilirubin,Total 0.6 mg/dl (0.2-1.3); Blood Urea Nitrogen 15 mg/dl (9-20); Calcium 9.6 mg/dl (8.4-10.2); Carbon Dioxide 28 mmol/L (22.0-30.0); Chloride 103 mmol/L (98-107); Chol/HDL Ratio 3.8 (1-3.5); Cholesterol 94 mg/dl (140-200); Estimated Glomerular Filt Rate 77 ml/min (>60); GFR (African American) 93 ML/MIN (>60); Globulin 2.2 g/dL (1.3-3.2); Glucose 70 mg/dl (74-100); HDL Cholesterol 25 mg/dl (40-60); Potassium 4.7 mmoL/L (3.5-5.1); Sodium 140 mmol/L (136-145); Total Protein,Serum 6.4 g/dl (6.3-8.2); Triglycerides 107 mg/dl (30-150); VLDL Cholesterol 21 mg/dL (0-40)
[2024-05-07 13:44] LABS: Direct LDL Cholesterol 50.56 mg/dL (100-129)
[2024-05-07 13:49] LABS: Hemoglobin A1C 5.6 % (4.0-6.0)
== END 2024-05-07 23:59 | disposition home or self-care (01) ==
LOC: LAB.DROPOF 15:23
PROVIDERS: PCP Internal Medicine; Visit Provider Internal Medicine
DX: E78.5 Hyperlipidemia, unspecified (principal); I10 Essential (primary) hypertension; F17.210 Nicotine dependence, cigarettes, uncomplicated; E11.9 Type 2 diabetes mellitus without complications; Z79.84 Long term (current) use of oral hypoglycemic drugs; Z79.85 Long-term (current) use of injectable non-insulin antidiabetic drugs; Z79.4 Long term (current) use of insulin
CPT/HCPCS: 80053; 80061; 83036

== ENCOUNTER 2024-06-22 17:22 | Emergency (ER) | payer OTHER, SELFPAY ==
[2024-06-22] VITALS (10 sets, daily range): BP systolic 157–191; BP diastolic 74–142; PULSE 74–100; RESP 16–19; TEMP 36.6–36.8; O2SAT 92–100; BMI 29.7
--- NOTE | 2024-06-22 17:22 | ECG_ITS ---
APPROVED REPORT Exam: Resting ECG HR:86 bpm ECG Measurements Heart Rate 86 AXES AZ 161 P 71 QRSd 93 QRS 85 QT 392 T 65 QTc 435 Conclusion SINUS RHYTHM No STEMI Electronically signed by : LIBERTAD CORONADO, 06/23/2024 00:16:34
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
[2024-06-22 17:32] LABS: Basophils # 0.1 K/mm3 (0-0.2); Basophils % 1.1 % (0.1-2.0); Eosinophils # 0.1 K/mm3 (0.0-0.4); Hematocrit 49.4 % (42.0-52.0); Hemoglobin 16.6 g/dL (14.1-18.0); Lymphocytes # 3.6 K/mm3 (0.7-4.5); Lymphocytes % 28.9 % (10-50); Mean Corpuscular HGB Conc 33.6 g/dL (31.8-35.4); Mean Corpuscular Hemoglobin 27.7 pg (27.0-31.2); Mean Corpuscular Volume 82.5 fl (80-94); Mean Platelet Volume 12.1 fl (7.4-10.4); Monocytes # 0.7 K/mm3 (0.1-1.0); Monocytes % 5.9 % (1.7-9.3); Neutrophils # 7.5 K/mm3 (1.8-7.8); Neutrophils % 61.3 % (37.0-80.0); Platelet Count 276 K/mm3 (142-424); Red Blood Count 5.99 M/mm3 (4.60-6.20); Red Cell Distribution Width 14.2 % (11.5-17.5); White Blood Count 12.3 K/mm3 (4.8-10.8)
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
[2024-06-22 17:38] LABS: Albumin Level 4.8 g/dl (3.5-5.0); Chloride 102 mmol/L (98-107); Potassium 4.1 mmoL/L (3.5-5.1); Sodium 139 mmol/L (136-145)
[2024-06-22 17:41] LABS: Alanine Aminotransferase 27 U/L (12-78); Alkaline Phosphatase 70 U/L (38-126); Anion Gap 19.1 mEq/L (5-15); Aspartate Amino Transferase 33 U/L (17-59); Bilirubin,Total 0.7 mg/dl (0.2-1.3); Blood Urea Nitrogen 20 mg/dl (9-20); Carbon Dioxide 22 mmol/L (22.0-30.0); Estimated Glomerular Filt Rate 87 ml/min (>60); GFR (African American) 105 ML/MIN (>60); Globulin 2.4 g/dL (1.3-3.2); Lipase 181 U/L (23-300); Total Protein,Serum 7.2 g/dl (6.3-8.2)
[2024-06-22 17:42] LABS: Activated Partial Thrombo Time 21.1 seconds (22.5-28.5); Calcium 9.6 mg/dl (8.4-10.2); Glucose 137 mg/dl (74-100); INR 0.99 (0.9-1.1); Prothrombin Time 10.9 seconds (9.2-12.1)
--- NOTE | 2024-06-22 17:42 | PC.NURSE ---
Addendum entered by Neo Delgado RN 06/22/24 17:47: entered on the wrong pt Original Note: PT BACK TO ROOM
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
--- NOTE | 2024-06-22 17:47 | PC.NURSE ---
pt to scan via stretcher
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
[2024-06-22 17:54] LABS: Troponin I < 0.01 ng/ml (0.00-0.034)
[2024-06-22 18:05] LABS: Lactic Acid 2.3 mmol/L (0.7-2.1)
[2024-06-22] MEDS: SODIUM CHLORIDE 0.9% 10ML SYR (RAD ONLY) 10 ML IV (18:14)
[2024-06-22] MEDS: 0.9 % SODIUM CHLORIDE 50 ML VIAL 80 ML IV (18:14)
[2024-06-22] MEDS: IOPAMIDOL-370 (76%);100ML BOTTLE 160 ML IV (18:14)
[2024-06-22] MEDS: LACTATED RINGERS 1000ML 1,000 ML 999 ML IV (18:20)
[2024-06-22 18:35] LABS: Ethyl Alcohol < 10 mg/dl (0-10)
--- NOTE | 2024-06-22 18:45 | PC.NURSE ---
PT BACK TO ROOM FROM SCANS
--- NOTE | 2024-06-22 19:26 | PC.NURSE ---
Patient declined tetanus vaccine; stated he had one less than two years before
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
--- NOTE | 2024-06-22 21:22 | PC.NURSE ---
Waiting on Disc to D/C
[2024-06-22 21:34] LABS: Reflex Lactic Add Lactic Reflex
--- NOTE | 2024-06-22 21:35 | PC.NURSE ---
Patient still waiting for family to bring him clothes and transport him to .
--- NOTE | 2024-06-22 22:07 | PC.NURSE ---
IV removed. Catheter tip intact. Bleeding controlled.
== END 2024-06-22 22:07 | disposition short-term general hospital (02) ==
PROVIDERS: Emergency Provider Emergency Medicine; PCP Internal Medicine
DX: T14.8XXA Other injury of unspecified body region, initial encounter (principal); S22.089A Unspecified fracture of T11-T12 vertebra, initial encounter for closed fracture; S02.2XXA Fracture of nasal bones, initial encounter for closed fracture; I65.09 Occlusion and stenosis of unspecified vertebral artery; R41.82 Altered mental status, unspecified; R51.9 Headache, unspecified; M25.511 Pain in right shoulder; M54.2 Cervicalgia; M25.512 Pain in left shoulder; M54.50 Low back pain, unspecified; F17.210 Nicotine dependence, cigarettes, uncomplicated; Y09 Assault by unspecified means
CPT/HCPCS: 70450; 70486; 70496; 70498; 71045; 71275; 72125; 72128; 72131; 72170; 72192; 73030; 73060; 73080; 73120; 74174; 80053; 80320; 83605; 83690; 84484; 85025; 85610; 85730; 90715; 93005; 96360; 99291; G0480; J7120; Q9967

== ENCOUNTER 2024-06-25 12:38 | Outpatient (CLI) | payer OTHER, SELFPAY ==
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
== END 2024-06-25 23:59 | disposition home or self-care (01) ==
LOC: RAD 12:39
PROVIDERS: PCP Internal Medicine; Visit Provider Internal Medicine
DX: M25.561 Pain in right knee (principal); M25.461 Effusion, right knee
CPT/HCPCS: 73562

== ENCOUNTER 2024-08-23 10:52 | Day surgery (SDC) | payer OTHER, SELFPAY ==
[2024-08-21 17:16] VITALS: BMI 31.0
[2024-08-23 12:14] VITALS: BP 145/84; PULSE 57; RESP 18; TEMP 36.1; O2SAT 99
[2024-08-23] MEDS: LACTATED RINGERS 1000ML 1,000 ML 50 ML IV (12:31)
[2024-08-23 12:34] LABS: POC Glucose,Bedside 88 (70-110)
--- NOTE | 2024-08-23 13:33 | P.PNANES_ITS ---
[facility] Disclaimer: The information contained in this section may have been updated after the patient was seen, as this information can be updated by other users. Medical History Hyperlipidemia Sleep apnea COPD (chronic obstructive pulmonary disease) Diabetes mellitus, type 2 Empyema Surgical History H/O colonoscopy Family History Other No significant family history Social History Smoking Status: Current every day smoker tobacco type: cigarettes packs per day: 1 alcohol intake: current alcohol intake frequency: holidays/special occasions only substance use type: denies use current occupational status: employed Travel in the last 8 weeks: None household members: spouse housing: house caffeine: Yes Have you lived/traveled outside US in past 30 days?: No Contact w/someone who lives/traveled outside US past 30 days?: No Exposure to someone with infectious disease in past 14 days?: No Do you have a fever (greater than 100.4 F or 38 C)?: No Have you tested positive for COVID-19: No Exposed to someone with COVID-19 in past 14 days?: No Do you have a sore throat?: No Do you have a cough?: No Do you have any weakness?: No Do you have any diarrhea?: No Are you experiencing any unusual bleeding?: No Do you have any muscle aches/pain?: No Do you have any abdominal pain?: No Are you experiencing loss of taste or smell?: No [facility] Anesthesia Checklist Patient Identification Patient Identification: Arm Band and Verbal (Name & ) Structural Data Admitted From: Home Planned Operative Procedure/s: colonscopy Verified Documents: Surgical Consent and History and Physical NPO Status Verified Time NPO: 00:00 Additional verifications Anesthesia Reactions: No Hx Blood Transfusions: No Blood Transfusion Reaction: No Airway Assessment Mallampati Score:: Class I Neurological Assessment Hx Seizures: No Numbness or tingling in extremities: No Anesthesia Plan Anesthesia Risk discussed: Yes Anesthesia Plan: Verified ASA Class: II Anesthesia Type: MAC
[2024-08-23 13:34] VITALS: O2SAT 100
--- NOTE | 2024-08-23 13:40 | P.HP_ITS ---
History of Present Illness *Admission Date: 08/23/24 *Reason for visit:: Personal history of adenomatous colon polyps *History of present illness: Mr. Wolf is a 59-year-old gentleman who is here for follow-up surveillance colonoscopy the patient does have a history of multiple adenomatous polyps (more than 20 lifetime). The examination is deemed medically necessary for surveillance colonoscopy. The patient has been seen, interviewed and examined prior to the procedure by both myself and the anesthesia provider. [facility] Disclaimer: The information contained in this section may have been updated after the patient was seen, as this information can be updated by other users. Medical History Hyperlipidemia Sleep apnea COPD (chronic obstructive pulmonary disease) Diabetes mellitus, type 2 Empyema Surgical History H/O colonoscopy Family History Other No significant family history Social History Smoking Status: Current every day smoker tobacco type: cigarettes packs per day: 1 alcohol intake: current alcohol intake frequency: holidays/special occasions only substance use type: denies use current occupational status: employed Travel in the last 8 weeks: None household members: spouse housing: house caffeine: Yes Have you lived/traveled outside US in past 30 days?: No Contact w/someone who lives/traveled outside US past 30 days?: No Exposure to someone with infectious disease in past 14 days?: No Do you have a fever (greater than 100.4 F or 38 C)?: No Have you tested positive for COVID-19: No Exposed to someone with COVID-19 in past 14 days?: No Do you have a sore throat?: No Do you have a cough?: No Do you have any weakness?: No Do you have any diarrhea?: No Are you experiencing any unusual bleeding?: No Do you have any muscle aches/pain?: No Do you have any abdominal pain?: No Are you experiencing loss of taste or smell?: No Other Medical History Have you received the Flu Vaccine for this season: Yes Have you received the Pneumonia Vaccine: No Review of Systems Review of Systems Review of systems (narrative): Negative *Cardiovascular Comments: Negative *Gastrointestinal Comments: Negative *Genitourinary Comments: Negative *Musculoskeletal Comments: Negative *Neurologic Comments: Negative Meds Home Medications and Allergies Home Medications ?Medication ?Instructions ?Recorded ?Confirmed ?Type aspirin 81 mg capsule,delayed 81 mg PO DAILY Blood thinner 08/13/22 08/23/24 History release dapagliflozin propanediol 10 mg See Rx Instructions .Route 03/23/24 08/23/24 Rx tablet (Farxiga) .COMPLEX #90 tabs insulin glargine 100 unit/mL (3 See Rx Instructions .Route 03/23/24 08/23/24 Rx mL) subcutaneous pen (Lantus .COMPLEX #15 mL Solostar U-100 Insulin) metformin 500 mg tablet,extended See Rx Instructions .Route 03/23/24 08/23/24 Rx release 24 hr .COMPLEX #180 tabs omeprazole 40 mg capsule,delayed See Rx Instructions .Route 03/23/24 08/23/24 Rx release .COMPLEX #90 caps gabapentin 300 mg capsule 300 mg PO HS For restless legs #90 07/26/24 08/23/24 Rx caps escitalopram oxalate 20 mg tablet 40 mg (2 x 20 mg) PO DAILY 08/20/24 08/23/24 Rx (Lexapro) Depression #90 tabs New Prescriptions to Start Prescriptions: Allergies Allergy/AdvReac Type Severity Reaction Status Date / Time No Known Allergies Allergy Verified 08/23/24 12:11 Exam Data for Last 24 hours Vital signs and Labs for Last 24 Hours: Temp Pulse Resp BP Pulse Ox O2 Del Method O2 Flow Rate 97.0 F L 57 L 18 145/84 H 99 Nasal Cannula 5 08/23/24 12:14 08/23/24 12:14 08/23/24 12:14 08/23/24 12:14 08/23/24 12:14 08/23/24 13:34 08/23/24 13:34 Laboratory Results - last 24 hr 08/23/24 12:25: POC Glucose 88 I & O for Last 24 hours: Intake & Output 08/20/24 08/21/24 08/22/24 08/23/24 23:59 23:59 23:59 23:59 Weight 198 lb *Routine HEENT Exam Head: Present normocephalic Eye: Present EOMI and PERRL ENT: Present mucous membranes moist *Routine Neck Exam Neck: Present supple *Routine Respiratory Exam Respiratory: Present CTA bilaterally *Routine Cardiovascular Exam Cardiovascular: Present RRR *Routine Abdominal Exam Abdominal: Present soft and normoactive bowel sounds; Absent tenderness *Routine Rectal Exam Rectal:: deferred *Routine Genitalia Exam Genitalia:: deferred *Routine Extremities Exam Extremities: Absent cyanosis, clubbing or edema *Routine Skin Exam Skin: Present warm; Absent rash *Routine Neurological Exam Neurological: Present alert and oriented X3 Assessment and Plan *Assessment and plan (1) Personal history of adenomatous and serrated colon polyps: Status: Acute Category: Medical Code(s): Z86.0101 - Personal history of adenomatous and serrated colon polyps Plan A/P: 1. Personal history of multiple adenomatous colon polyps is the preprocedural diagnosis. The patient will be anesthetized/sedated using MAC sedation. The patient has been seen and examined. Cardiac and lung assessment prior to the examination is stable. Proceed with planned surveillance colonoscopy.
--- NOTE | 2024-08-23 13:59 | P.PCN_ITS ---
[facility] Procedure Note Date: 08/23/24 Time: 13:59 Procedure Note:: Colonoscopy Procedure Report: Colonoscopy with cold snare polypectomy Endoscopist: Arnold Jarrett II, MD Referring physician: Octavio Madera M.D./Johnson Saldana MD Date of Procedure: August 23, 2024 Equipment: Olympus 190 variable stiffness pediatric colonoscope Sedation: MAC sedation Indication: Mr. Wolf is a 59-year-old gentleman who has had multiple adenomatous colon polyps removed. The patient had a colonoscopy in January 2016 at which time more than 20 polyps were removed and some were large. Several of these were hyperplastic polyps but there were at least 7 tubular adenomas and at least 5 serrated adenomas. His colonoscopy in May 2019 revealed 11 polyps. His last 2 colonoscopies in 2022 showed very poor bowel preparation. The patient reports no abdominal pain, weight loss, change in his bowel habits or rectal bleeding. He reports no family history of colon cancer. Procedure: Prior to the procedure, a history and physical exam was performed, and patient's medications and allergies were reviewed. The risks, benefits and alternatives of the sedation and procedure were discussed with the patient. All questions were answered and informed consent was obtained. The patient was brought to the procedure room. Patient identification and proposed procedure were verified by the physician and the nurse. The patient was placed in a left lateral decubitus position and the scope was passed under direct vision. Throughout the procedure, the patient's blood pressure, pulse, and oxygen saturations were monitored continuously. The colonoscopy was accomplished without difficulty. The patient tolerated the procedure well. Findings: On digital rectal examination there was normal rectal tone. There were no external hemorrhoids. The colonoscope was introduced through the anal canal to the rectum and advanced to the cecum. The ileocecal valve and appendiceal orifice were identified. The scope was advanced a short distance into the ileum which appeared grossly normal. The scope was then withdrawn into the colon. The cecum, ascending and transverse colon and mucosa were grossly normal. There were scattered diverticuli throughout the descending and sigmoid colon (LEFT colon). There was a single hyperplastic appearing 4 mm sigmoid polyp removed via cold snare polypectomy. The rectum itself was normal. Upon retroflexion within the rectum there were grade 2 internal hemorrhoids. The preparation was fair throughout with Sutherlin Preparation Score of 7 out of 9. The cecal time was 12 minutes. Impression: 1. Diminutive sigmoid polyp (probable hyperplastic polyp) 2. Left-sided diverticulosis 3. Grade 2 internal hemorrhoids Plan: I will follow-up the polyp histology and recommend repeat surveillance colonoscopy again in 3 years. Persons with more than 20 adenomatous polyps cu mulatively over the lifetime (over several colonoscopies) are considered to be higher risk for potential colon cancer or a genetic colon cancer polyposis syndrome. It is recommended that persons with more than a cumulative of 20 adenomatous polyps over there lifetime should be evaluated with surveillance colonoscopy no less than every 3 years. He has had more than 20 adenomatous polyps removed over the course of your colonoscopies.
[2024-08-23 14:06] VITALS: BP 193/99; PULSE 58; RESP 16; TEMP 36.6; O2SAT 99
[2024-08-23 14:16] VITALS: BP 201/100; PULSE 53; RESP 16; O2SAT 100
[2024-08-23 14:26] VITALS: BP 164/72; PULSE 53; RESP 16; O2SAT 100
[2024-08-23 14:36] VITALS: BP 184/74; PULSE 57; RESP 16; O2SAT 100
== END 2024-08-23 14:50 | disposition home or self-care (01) ==
PROVIDERS: PCP Internal Medicine; Visit Provider Internal Medicine Gastroenterology
PROC: 0DJD8ZZ Inspection of Lower Intestinal Tract, Via Natural or Artificial Opening Endoscopic (ICD-10-PCS; CPT 45378; principal; 2024-08-23 12:30)
DX: K63.5 Polyp of colon (principal); K57.30 Diverticulosis of large intestine without perforation or abscess without bleeding; K64.1 Second degree hemorrhoids; Z86.0101 Personal history of adenomatous and serrated colon polyps
CPT/HCPCS: 45385; 82962; J7120

== ENCOUNTER 2024-11-08 11:40 | Outpatient (CLI) | payer OTHER, SELFPAY ==
[2024-11-08 15:40] LABS: Basophils # 0.1 K/mm3 (0-0.2); Basophils % 0.9 % (0.1-2.0); Eosinophils # 0.1 Kmm3 (0.0-0.4); Eosinophils % 0.9 % (0.1-12.0); Hematocrit 47.2 % (42.0-52.0); Hemoglobin 15.9 g/dL (14.1-18.0); Immature Granulocytes # 0.05 10^3uL; Immature Granulocytes % 0.4 %; Lymphocytes # 2.7 K/mm3 (0.7-4.5); Lymphocytes % 21.5 % (10-50); Mean Corpuscular HGB Conc 33.7 g/dL (31.8-35.4); Mean Corpuscular Hemoglobin 28.5 pg (27.0-31.2); Mean Corpuscular Volume 84.7 fl (80-94); Monocytes # 1.1 K/mm3 (0.1-1.0); Monocytes % 8.9 % (1.7-9.3); Neutrophils # 8.4 K/mm3 (1.8-7.8); Neutrophils % 67.4 % (37.0-80.0); Nucleated Red Blood Cells # 0 10^3/uL; Nucleated Red Blood Cells % 0 %; Platelet Count 237 K/mm3 (142-424); Red Blood Count 5.57 M/mm3 (4.60-6.20); Red Cell Distribution Width 14.4 % (11.5-17.5); Red Cell Distribution Width-SD 44.2 fL; White Blood Count 12.5 K/mm3 (4.8-10.8)
[2024-11-08 16:03] LABS: Albumin Level 4.1 g/dl (3.5-5.0); Chloride 100 mmol/L (98-107); Potassium 4.4 mmoL/L (3.5-5.1); Sodium 138 mmol/L (136-145)
[2024-11-08 16:04] LABS: Creatinine,Urine Random 76 mg/dL (Not Estab.); Microalbumin < 6.000 mg/L (0-16.7)
[2024-11-08 16:05] LABS: Blood Urea Nitrogen 23 mg/dl (9-20); Estimated Glomerular Filt Rate 87 ml/min (>60); GFR (African American) 105 ML/MIN (>60)
[2024-11-08 16:06] LABS: Alanine Aminotransferase 19 U/L (12-78); Albumin/Globulin Ratio 1.9 (1.1-1.8); Alkaline Phosphatase 60 U/L (38-126); Anion Gap 15.4 mEq/L (5-15); Aspartate Amino Transferase 20 U/L (17-59); Bilirubin,Total 0.4 mg/dl (0.2-1.3); Calcium 9.3 mg/dl (8.4-10.2); Carbon Dioxide 27 mmol/L (22.0-30.0); Cholesterol 166 mg/dl (140-200); Globulin 2.2 g/dL (1.3-3.2); Glucose 61 mg/dl (74-100); HDL Cholesterol 34 mg/dl (40-60); Total Protein,Serum 6.3 g/dl (6.3-8.2); Triglycerides 94 mg/dl (30-150); VLDL Cholesterol 19 mg/dL (0-40)
[2024-11-08 16:16] LABS: Chol/HDL Ratio 4.9 (1-3.5)
[2024-11-08 16:17] LABS: Direct LDL Cholesterol 110.36 mg/dL (100-129)
[2024-11-08 17:01] LABS: Prostate Specific Ag Screen 0.4 ng/ml (0.0-4.0)
[2024-11-08 18:26] LABS: Hemoglobin A1C 6.5 % (4.0-6.0)
--- OUTSIDE RECORDS SUMMARY | 2024-11-09 11:15 | XMS_ITS | Clinical Summary ---
Author Organization Healthcare Address [address] [place] [address] Care Team Providers Care Boat Puller Name Role Phone Avni Yarbrough MD Primary Care Provider [phone] Allergies No known active allergies Social History Tobacco Use Types Packs/Day Years Used Date Smoking Tobacco: Never Assessed Sex and Gender Information Value Date Recorded Sex Assigned at Male 06/23/2024 12:29 AM EST Legal Sex Male 8:31 PM EDT Gender Identity Not on file Sexual Orientation Not on file Last Filed Vital Signs Vital Sign Reading Time Taken Comments Blood Pressure 147/70 06/23/2024 12:00 AM EST Pulse 69 06/23/2024 12:00 AM EST Temperature 36.8 C (98.3 F) 06/22/2024 11:18 PM EST Respiratory Rate 14 06/23/2024 12:00 AM EST Oxygen Saturation 97% 06/23/2024 12:00 AM EST Inhaled Oxygen Concentration - - Weight - - Height - - Body Mass Index - - Plan of Treatment Not on file Insurance [place] [address] [employer] [facility] MEDICAID Care Teams Boat Puller Relationship Specialty Start Date End Date Avni Yarbrough MD [address] [place] [address] [facility] - General 09/26/20
== END 2024-11-08 23:59 | disposition home or self-care (01) ==
LOC: LAB.DROPOF 11-09 11:10
PROVIDERS: PCP Internal Medicine; Visit Provider Internal Medicine
DX: E78.5 Hyperlipidemia, unspecified (principal); E11.9 Type 2 diabetes mellitus without complications; I10 Essential (primary) hypertension; Z12.5 Encounter for screening for malignant neoplasm of prostate
CPT/HCPCS: 80053; 80061; 82043; 82570; 83036; 85025; G0103

== ENCOUNTER 2025-02-18 12:52 | Outpatient (CLI) | payer OTHER, SELFPAY ==
--- OUTSIDE RECORDS SUMMARY | 2025-02-18 12:55 | XMS_ITS | Clinical Summary ---
Author Organization [facility] Address [address] [place] [address] Care Team Providers Care Zig Zag Stitcher Name Role Phone Avni Yarbrough MD Primary Care Provider Allergies No known active allergies Social History [...] of Treatment Not on file Insurance [place] [facility] [address] [place] [employer]ETNA [facility] MEDICAID Care Teams Zig Zag Stitcher Relationship Specialty Start Date End Date Avni Yarbrough MD [address] [place] [address] [facility] - General 09/26/20
--- OUTSIDE RECORDS SUMMARY | 2025-02-18 12:55 | XMS_ITS | Clinical Summary ---
Author Organization [facility] Address [address] [place] [address] Care Team Providers Care Estate Conservator Name Role Phone Unavailable Primary Care Provider Unavailabl e Social History Tobacco Use Types Packs/Day Years Used Date Smoking Tobacco: Never Assessed Abuse Screen Answer Date Recorded Unsafe at Home or Work/School Not on file Feels Threatened by Someone? Not on file 02/2023 Does Anyone Keep You from Co ntacting Others or Doint Things Outside the Home? Not on file 02/22/2023 Physical Sign of Abuse Present Not on file 1 Housing Stability Answer Date Recorded Current Living Arrangements Not on file 02/13 Potentially Unsafe Housing Conditions Not on paola e 02/22/2023 Family and Community Support Answer Valerio e Recorded Help with Day-to-Day Activities Not on file 02/22/2023 Lonely or Isolated Not on file 02/22/2023 Employment Answer Date Recorded Do you want help finding or keeping work or a carol ann b? Not on file 02/22/2023 Disabilities Answer Date Recorded Concentrating, Remembering, or Making Decisions Difficulty Not on file 02/22/2023 Doing Errands Independently Difficulty Not on fi le 02/22/2023 Education Answer Date Recorded Help with school or training? Not on file Preferred Language Not on file 02/22/2023 Sex and Gender Information Value Date Recorded Sex Assigned at Not on file Legal Sex Male 1:39 PM EDT Gender Identity Not on file Sexual Orientation Not on file Last Filed Vital Signs Vital Sign Reading Time Taken Comments Blood Pressure 150/96 11/27/2013 2:29 PM EDT Pulse 77 11/27/2013 2:29 PM EDT Temperature 36.6 C (97.9 F) 11/27/2013 2:29 PM EDT Respiratory Rate 16 11/27/2013 2:29 PM EDT Oxygen Saturation 97% 11/27/2013 2:29 PM EDT Inhaled Oxygen Concentration - - Weight 121 kg (266 lb 0.1 oz) 11/27/2013 2:29 PM EDT Height 175.3 cm (5' 9 ) 11/27/2013 2:29 PM EDT Body Mass Index 39.28 11/27/2013 2:29 PM EDT Plan of Treatment Health Maintenance Due Date Last Done Comments ANNUAL PHYSICAL 1966 HEPATITIS C SCREENING 1966 TDAP/TD VACCINES (1 - Tdap) 1985 COLOGUARD 2011 COLON CANCER SCREENING 5 YEAR SIGMOIDOSCOPY 2011 COLONOSCOPY 2011 COL[address]ECTAL CANCER SCREENING 2011 CT COLONOGRAPHY 2011 FECAL OCCULT BLOOD TEST 2011 FIT Testing (1 year) 2011 Pneumococcal Vaccine 50+ (1 of 1 - PCV) 2016 ZOSTER VACCINE (1 of 2) 2016 INFLUENZA VACCINE 12/14/2024
--- NOTE | 2025-02-18 13:00 | MR_ITS ---
FINAL REPORT TECHNIQUE: Multiplanar and multisequence imaging of the shoulder was obtained without contrast. CLINICAL HISTORY: Right Shoulder Pain, LIMITED ROM COMPARISON: None FINDINGS: Bones and joints: There is no acute fracture, edema, or pathologic marrow replacement. Acromioclavicular joint degenerative disease is present and there is osteophytosis which narrows the supraspinatus outlet. Rotator cuff: There is a partial-thickness articular sided tear of the supraspinatus tendon involving approximately 50% of the thickness of that tendon at the footplate. There is a partial articular sided tear of the infraspinatus tendon, involving approximately 50% of the thickness of that tendon proximal to the footplate. No full-thickness tear is seen. No subscapularis tendon tear. There is no fatty atrophy of the rotator cuff muscles. Labrum: The biceps labral complex is intact. There is a posterior and inferior labral tear, that begins at the 9 o'clock position and extends to at least the 5 o'clock position, associated with a 22 mm in diameter paralabral cyst. The inferior glenohumeral ligament is intact. The biceps tendon is intact. No biceps tendon tear is identified. Other: There is no significant joint effusion. Remaining soft tissues are within normal limits. IMPRESSION: 1. Partial-thickness articular sided tears of the supraspinatus and infraspinatus tendons as described above. 2. Posterior and inferior labral tear, with dated 22 mm paralabral cyst as described. Reviewed, Interpreted and Dictated by Krystal Delatorre MD Transcribed by Fartun Borrego Authenticated and [facility]
--- NOTE | 2025-02-18 13:08 | XR_ITS ---
FINAL REPORT CLINICAL HISTORY: hx of metal in the eyes from welding MRI CLEARANCE FINDINGS: ORBITS Look up and look down views were obtained for MRI clearance. No metallic foreign body identified. The patient does have hearing aids in place. IMPRESSION: No metallic foreign body. Reviewed, Interpreted and Dictated by Krystal Delatorre MD Transcribed by Susan Noyola Authenticated and [facility]
== END 2025-02-18 23:59 | disposition home or self-care (01) ==
LOC: RAD 12:53
PROVIDERS: PCP Internal Medicine; Visit Provider Physician Assistant
DX: M75.111 Incomplete rotator cuff tear or rupture of right shoulder, not specified as traumatic (principal); S43.491A Other sprain of right shoulder joint, initial encounter; M25.811 Other specified joint disorders, right shoulder; Z04.89 Encounter for examination and observation for other specified reasons
CPT/HCPCS: 70200; 73221

== ENCOUNTER 2025-03-15 13:00 | Outpatient (RCR) | payer OTHER, SELFPAY | END 2025-03-15 23:59 | disposition home or self-care (01) | LOC: OT 13:00 | PROVIDERS: PCP Internal Medicine; Visit Provider Physician Assistant | DX: M75.111 Incomplete rotator cuff tear or rupture of right shoulder, not specified as traumatic (principal); M67.911 Unspecified disorder of synovium and tendon, right shoulder; M75.02 Adhesive capsulitis of left shoulder; M75.01 Adhesive capsulitis of right shoulder; M24.111 Other articular cartilage disorders, right shoulder | CPT/HCPCS: 97014; 97035; 97110; 97140; 97165; G0283 ==

== ENCOUNTER 2025-04-04 15:00 | Outpatient (RCR) | payer OTHER, SELFPAY | END 2025-04-04 23:59 | disposition home or self-care (01) | LOC: OT 15:00 | PROVIDERS: PCP Internal Medicine; Visit Provider Physician Assistant | DX: M24.111 Other articular cartilage disorders, right shoulder (principal); M75.102 Unspecified rotator cuff tear or rupture of left shoulder, not specified as traumatic; M75.101 Unspecified rotator cuff tear or rupture of right shoulder, not specified as traumatic; M75.52 Bursitis of left shoulder; M77.8 Other enthesopathies, not elsewhere classified; M75.51 Bursitis of right shoulder; M70.61 Trochanteric bursitis, right hip; M70.62 Trochanteric bursitis, left hip; M75.111 Incomplete rotator cuff tear or rupture of right shoulder, not specified as traumatic; M67.911 Unspecified disorder of synovium and tendon, right shoulder; M75.01 Adhesive capsulitis of right shoulder; M75.02 Adhesive capsulitis of left shoulder | CPT/HCPCS: 97014; 97032; 97110; 97140; 97530; G0283 ==